=== PATIENT | female | born 1940 ===

== ENCOUNTER 2016-10-08 17:24 | Inpatient (IN) | payer MEDICARE, MEDICAID ==
--- NOTE | 2016-10-08 17:54 | ED PDOC ---
HPI: Altered Mental Status Time Seen by Provider: 10/08/16 17:40 Chief Complaint (Nursing): Altered Mental Status History Per: Patient (patient is brought to the ER via EMS because of lethargy. She was noted to have low sugar by EMS. She was given glucose PO on scene and transported for further treatment. Patient reports have had multiple episodes of diarrhea yesterday.), EMS Onset/Duration Of Symptoms: Waxing/Waning, Gradual Usual Baseline: Alert Oriented Past Medical History Vital Signs: Last Vital Signs Temp 96.0 F L 10/08/16 17:33 Pulse 73 10/08/16 17:33 Resp 20 10/08/16 17:33 BP 107/49 L 10/08/16 17:33 Pulse Ox 99 10/08/16 17:33 - Medical History PMH: Anxiety, Arthritis, CAD, HTN, Hypothyroidism Denies: Asthma, Bronchitis, COPD, Hypercholesterolemia, Mitral Valve Prolapse , Peripheral Edema - Surgical History Surgical History: CABG Denies: Pacemaker - Family History Family History: States: CAD - Living Arrangements Living Arrangements: With Family - Home Medications Home Medications: Ambulatory Orders Medication Instructions Recorded Aspirin [Ecotrin] 81 mg PO DAILY 10/08/16 Atorvastatin [Lipitor] 80 mg PO DAILY 10/08/16 Clopidogrel [Plavix] 75 mg PO DAILY 10/08/16 Dexlansoprazole [Dexilant] 60 mg PO DAILY 10/08/16 Gabapentin [Neurontin] 300 mg PO TID 10/08/16 Insulin Detemir [Levemir] 20 unit SQ HS 10/08/16 Isosorbide Mononitrate [Imdur] 60 mg PO DAILY 10/08/16 Levothyroxine [Synthroid] 50 mcg PO DAILY 10/08/16 Multivitamin [Daily Vitamin 1 tab PO DAILY 10/08/16 Formula] Valsartan [Diovan] 320 mg PO DAILY 10/08/16 amLODIPine [Norvasc] 5 mg PO DAILY 10/08/16 metFORMIN [glucOPHAGE] 500 mg PO BID 10/08/16 - Allergies Allergies/Adverse Reactions: Allergies Allergy/AdvReac Type Severity Reaction Status Date / Time No Known Allergies Allergy Verified 03/25/14 20:41 Review of Systems ROS Statement: Except As Marked, All Systems Reviewed And Found Negative Gastrointestinal: Positive for: Diarrhea. Negative for: Abdominal Pain Genitourinary Female: Negative for: Dysuria, Frequency Physical Exam - Reviewed Nursing Documentation Reviewed: Yes Vital Signs Reviewed: Yes - Physical Exam Appears: Positive for: Well, Non-toxic, No Acute Distress Head Exam: Positive for: ATRAUMATIC, NORMAL INSPECTION, NORMOCEPHALIC Skin: Positive for: Normal Color, Warm, DRY Eye Exam: Positive for: EOMI, Normal appearance, PERRL ENT: Positive for: Normal ENT Inspection Neck: Positive for: Normal, Painless ROM Cardiovascular/Chest: Positive for: Regular Rate, Rhythm Respiratory: Positive for: CNT, Normal Breath Sounds Gastrointestinal/Abdominal: Positive for: Normal Exam, Bowel Sounds, Soft Back: Positive for: Normal Inspection Extremity: Positive for: Normal ROM Neurologic/Psych: Positive for: Alert, Oriented - Laboratory Results Result Diagrams: 10/09/16 07:05 10/09/16 07:05 - ECG O2 Sat by Pulse Oximetry: 99 Disposition - Clinical Impression Clinical Impression: UTI (urinary tract infection), Dehydration, Hypoglycemia - Patient ED Disposition Is Patient to be Admitted: Yes Doctor Will See Patient In The: Hospital - Disposition Disposition: Left W/O Being Seen Disposition Time: 09:31 Condition: STABLE - Pt Status Changed To: Hospital Disposition Of: Inpatient - Admit Certification Admit to Inpatient:: After my assessment, the patient will require hospitalization for at least two midnights. This is because of the severity of symptoms shown, intensity of services needed, and/or the medical risk in this patient being treated as an outpatient. - POA Present On Arrival: None
[2016-10-08] MEDS ORDERED: Dextrose 5%/0.45% NS 1,000 ML IV SCH (18:00)
[2016-10-08 18:26] LABS: BASO % 0.4 % (0.0-2.0); EOS # 0.1 K/uL (0.0-0.7); EOS % 0.8 % (0.0-4.0); HEMATOCRIT 28.9 % (34.0-47.0); LYMPH # 1.6 K/uL (1.0-4.3); LYMPH % 18.1 % (20.0-40.0); MEAN CELL VOLUME 82.3 fl (81.0-99.0); MEAN CORPUSCULAR HEMOGLOBIN 26.8 pg (27.0-31.0); MEAN CORPUSCULAR HGB CONC 32.6 g/dL (33.0-37.0); MEAN PLATELET VOLUME 7.9 fl (7.2-11.7); MONO # 0.6 K/uL (0.0-0.8); MONO % 6.7 % (0.0-10.0); NEUT # 6.6 K/uL (1.8-7.0); RED CELL DISTRIBUTION WIDTH 15.2 % (11.5-14.5)
[2016-10-08 18:56] LABS: ALB/GLOB RATIO 1.1 (1.0-2.1); ALKALINE PHOSPHATASE 129 U/L (38-126); ALT/SGPT 32 U/L (9-52); AST/SGOT 54 U/L (14-36); BILIRUBIN,TOTAL 0.3 mg/dl (0.2-1.3); BLOOD UREA NITROGEN 6 mg/dl (7-17); CALCIUM 9.2 mg/dL (8.4-10.2); CARBON DIOXIDE 23 mmol/L (22-30); CHLORIDE 100 mmol/L (98-107); GFR AFRICAN-AMERICAN > 60; GLUCOSE,RANDOM 73 mg/dL (65-105); POTASSIUM 3.6 MMOL/L (3.6-5.0); SODIUM 131 mmol/l (132-148); TOTAL PROTEIN 7.7 G/DL (6.3-8.2)
--- NOTE | 2016-10-08 19:10 | ED PDOC ---
- Laboratory Results Result Diagrams: 10/08/16 18:15 10/08/16 18:15 - ECG O2 Sat by Pulse Oximetry: 99 Medical Decision Making Medical Decision Makin:00 Patient is signed out to me by Lanette Graves MD pending reevaluation and final disposition. 20:00 Pt. states she's feeling slightly better, still dizzy she states. UTI on UA. Will admit for dehydration, UTI, hypoglcemia. Scribe Attestation: Documented by Merle Chris, acting as a scribe for Blue Lange MD. Provider Scribe Attestation: All medical record entries made by the Scribe were at my direction and personally dictated by me. I have reviewed the chart and agree that the record accurately reflects my personal performance of the history, physical exam, medical decision making, and the department course for this patient. I have also personally directed, reviewed, and agree with the discharge instructions and disposition. Disposition - Clinical Impression Clinical Impression: Urinary tract infection, Dehydration, Hypoglycemia - POA Present On Arrival: None - Disposition Disposition: Hospitalized as Observation Patient Disposition Time: 20:54 Condition: STABLE
[2016-10-08 19:36] LABS: PARTIAL THROMBOPLASTIN TIME 25.7 SECONDS (23.3-32.5)
[2016-10-08] MEDS ORDERED: Sodium Chloride 0.9% 1,000 ML IV STA (20:18)
[2016-10-08 20:38] LABS: RBC URINE 25 /hpf (0-3); URINE BACTERIA MANY (<OCC); URINE BILIRUBIN NEGATIVE (NEGATIVE); URINE BLOOD MODERATE (NEGATIVE); URINE COLOR YELLOW (YELLOW); URINE GLUCOSE (UA) 150 mg/dL (Normal); URINE KETONE NEGATIVE (NEGATIVE); URINE LEUKOCYTE ESTERASE MOD Leu/uL (Negative); URINE PROTEIN NEGATIVE (NEGATIVE); URINE UROBILINOGEN 0.2-1.0 mg/dL (0.2-1.0); WBC URINE 18 /hpf (0-5)
[2016-10-08] MEDS ORDERED: Ciprofloxacin 200mg/100ml D5W 100 ML IVPB STA (20:50)
[2016-10-09] MEDS ORDERED: Sodium Chloride 0.9% 1,000 ML IV SCH (06:15)
[2016-10-09 07:50] LABS: ALB/GLOB RATIO 1.1 (1.0-2.1); ALKALINE PHOSPHATASE 135 U/L (38-126); ALT/SGPT 28 U/L (9-52); AST/SGOT 28 U/L (14-36); BILIRUBIN,TOTAL 0.2 mg/dl (0.2-1.3); BLOOD UREA NITROGEN 3 mg/dl (7-17); CALCIUM 8.7 mg/dL (8.4-10.2); CARBON DIOXIDE 21 mmol/L (22-30); CHLORIDE 104 mmol/L (98-107); CHOLESTEROL 127 mg/dL (0-199); GFR AFRICAN-AMERICAN > 60; GLUCOSE,RANDOM 253 mg/dL (65-105); POTASSIUM 3.9 MMOL/L (3.6-5.0); SODIUM 135 mmol/l (132-148); TOTAL PROTEIN 6.9 G/DL (6.3-8.2)
[2016-10-09 08:02] LABS: HEMATOCRIT 28.4 % (34.0-47.0); MEAN CELL VOLUME 82.2 fl (81.0-99.0); MEAN CORPUSCULAR HEMOGLOBIN 27.2 pg (27.0-31.0); MEAN CORPUSCULAR HGB CONC 33.1 g/dL (33.0-37.0); WHITE BLOOD COUNT 5.8 K/uL (4.8-10.8)
[2016-10-09 08:20] LABS: THYROID STIMULATING HORMONE 1.36 mIU/ML (0.46-4.68)
--- NOTE | 2016-10-09 08:23 | CARD ---
APPROVED REPORT EKG Measurement Heart [id number] <Conclusion> Sinus rhythm with occasional premature ventricular complexes Abnormal ECG
[2016-10-09] MEDS ORDERED: Patient's Own Med (Atorvastatin [Lipitor] 80 MG) PO SCH (09:00)
[2016-10-09] MEDS ORDERED: MULTIVITAMIN PO SCH (09:00)
[2016-10-09] MEDS ORDERED: Patient's Own Med (Valsartan [Diovan] 320 MG) PO SCH (09:00)
[2016-10-09] MEDS: Ciprofloxacin 200mg/100ml D5W 100 ML IVPB SCH ×2 (09:10→21:45)
[2016-10-09] MEDS: Levothyroxine 50 MCG TAB PO SCH (09:13)
[2016-10-09] MEDS: Multivitamin With Minerals Tab PO SCH (09:13)
[2016-10-09] MEDS: Pantoprazole 40 mg EC Tab PO SCH (09:13)
[2016-10-09] MEDS ORDERED: Dextrose 50% SYRINGE Inj (50 ml) IV PRN (11:59)
[2016-10-09] MEDS ORDERED: Glucagon Recombinant 1 mg Inj IM PRN (11:59)
[2016-10-09] MEDS: Enoxaparin 40 mg Syringe SC SCH (12:46)
[2016-10-09] MEDS: Insulin Regular 100 units/ml SC SCH ×3 (12:48→22:55)
--- NOTE | 2016-10-09 13:28 | RAD ---
HISTORY: r/o PNA COMPARISON: 03/25/2014 FINDINGS: LUNGS: The lungs are well inflated and clear. PLEURA: No significant pleural effusion identified, no pneumothorax apparent. CARDIOVASCULAR: The heart is normal in size. Status post CABG. OSSEOUS STRUCTURES: Within normal limits for the patient's age. VISUALIZED UPPER ABDOMEN: Normal. OTHER FINDINGS: None. IMPRESSION: No active pulmonary disease.
[2016-10-10 01:02] LABS: FOLATE > 20.0 ng/mL
[2016-10-10] MEDS: Levothyroxine 50 MCG TAB PO SCH (05:43)
[2016-10-10] MEDS: Insulin Regular 100 units/ml SC SCH ×4 (06:36→22:28)
--- NOTE | 2016-10-10 07:53 | CARD ---
APPROVED REPORT EXAM: Two-dimensional and M-mode echocardiogram with Doppler and color Doppler. Other Information Quality : AverageRhythm : NSR INDICATION Fatigue Hypertension/HCVD 2D DIMENSIONS IVSd0.64 (0.7-1.1cm)LVDd3.56 (3.9-5.9cm) LVOT Diameter1.45 (1.8-2.4cm)PWd0.83 (0.7-1.1cm) IVSs0.66 (0.8-1.2cm)LVDs3.16 (2.5-4.0cm) FS (%) 11.1 %PWs0.93 (0.8-1.2cm) M-Mode DIMENSIONS Left Atrium (MM)4.11 (2.5-4.0cm)Aortic Root2.54 (2.2-3.7cm) Aortic Cusp Exc.1.21 (1.5-2.0cm) Mitral Valve E/A ratio0.0 TDI E/Lateral E'0.0E/Medial E'0.0 LEFT VENTRICLE The left ventricle is normal size. There is normal left ventricular wall thickness. Left ventricle systolic function is low normal. The Ejection Fraction is 45-50%. Apical half of the septum was hypokinetic Other LV wall segments moved normally. Transmitral Doppler flow pattern is Grade I-abnormal relaxation pattern. RIGHT VENTRICLE The right ventricle is normal size. There is normal right ventricular wall thickness. The right ventricular systolic function is normal. ATRIA The left atrium size is normal. The right atrium size is normal. AORTIC VALVE The aortic valve is mildly sclerotic. No aortic regurgitation is present. There is no aortic valvular stenosis. MITRAL VALVE Mitral annular calcification is mild to moderate. There is no evidence of mitral valve prolapse. There is no mitral valve stenosis. There is no mitral valve regurgitation noted. TRICUSPID VALVE The tricuspid valve is normal in structure and function. There is no tricuspid valve regurgitation noted. PULMONIC VALVE The pulmonary valve is normal in structure and function. There is no pulmonic valvular regurgitation. GREAT VESSELS The aortic root is normal in size. The IVC is normal in size and collapses >50% with inspiration. PERICARDIAL EFFUSION The pericardium appears normal. <Conclusion> The images were suboptimal because of a poor echo window. The left ventricle is normal size. There is normal left ventricular wall thickness. Apical half of the septum was hypokinetic Other LV wall segments moved normally. Left ventricle systolic function is low normal. The Ejection Fraction is 45-50%. Transmitral Doppler flow pattern is Grade I-abnormal relaxation pattern.
[2016-10-10] MEDS: Ciprofloxacin 200mg/100ml D5W 100 ML IVPB SCH ×2 (09:13→22:00)
[2016-10-10] MEDS: Enoxaparin 40 mg Syringe SC SCH (09:15)
[2016-10-10] MEDS: Multivitamin With Minerals Tab PO SCH (09:16)
[2016-10-10] MEDS: Pantoprazole 40 mg EC Tab PO SCH (09:16)
--- NOTE | 2016-10-10 10:19 | CP.PCM.HP ---
History of Present Illness - History of Present Illness History of Present Illness: This is a 76 y/o female admitted through the ER last night for general debility , hypoglycemia and UTI She was on glipizide and Insulin and low dose Metformin at home. She claims that she had not been feeling well for the past few days. She has a hx of HTN CAD Hypothyroidism., DM 2. Present on Admission - Present on Admission Any Indicators Present on Admission: No History of DVT/PE: No History of Uncontrolled Diabetes: Yes Urinary Catheter: No Decubitus Ulcer Present: No Review of Systems - Constitutional Constitutional: Daytime Sleepiness, Fatigue, Lethargy, Malaise, Weakness - Musculoskeletal Musculoskeletal: Arthralgias Past Patient History - Tetanus Immunizations Tetanus Immunization: Unknown - Past Medical History & Family History Past Medical History?: Yes - Past Social History Smoking Status: Never Smoked - CARDIAC Hx Hypercholesterolemia: No Hx Hypertension: Yes Hx Mitral Valve Prolapse: No Hx Pacemaker: No Hx Peripheral Edema: No - PULMONARY Hx Asthma: No Hx Bronchitis: No Hx Chronic Obstructive Pulmonary Disease (COPD): No - NEUROLOGICAL Hx Neurological Disorder: No - HEENT Hx HEENT Problems: Yes Hx Blind: Yes (both eyes) - RENAL Hx Chronic Kidney Disease: No Hx Dialysis: No - ENDOCRINE/METABOLIC Hx Hypothyroidism: Yes - HEMATOLOGICAL/ONCOLOGICAL Hx Blood Disorders: No Hx AIDS: No Hx Human Immunodeficiency Virus (HIV): No - INTEGUMENTARY Hx Dermatological Problems: No - MUSCULOSKELETAL/RHEUMATOLOGICAL Hx Arthritis: Yes - GASTROINTESTINAL Hx Gastrointestinal Disorders: Yes Hx Gastroesophageal Reflux: Yes - GENITOURINARY/GYNECOLOGICAL Hx Genitourinary Disorders: No - PSYCHIATRIC Hx Anxiety: Yes - SURGICAL HISTORY Hx Coronary Artery Bypass Graft: Yes - ANESTHESIA Hx Anesthesia: Yes Hx Anesthesia Reactions: No Hx Malignant Hyperthermia: No Meds Allergies/Adverse Reactions: Allergies Allergy/AdvReac Type Severity Reaction Status Date / Time No Known Allergies Allergy Verified 03/25/14 20:41 Physical Exam - Head Exam Head Exam: NORMAL INSPECTION - Eye Exam Eye Exam: Normal appearance - ENT Exam ENT Exam: Mucous Membranes Moist - Respiratory Exam Respiratory Exam: Clear to Auscultation Bilateral - Cardiovascular Exam Cardiovascular Exam: REGULAR RHYTHM - GI/Abdominal Exam GI & Abdominal Exam: Normal Bowel Sounds - Neurological Exam Neurological exam: CN II-XII Intact, Oriented x3 - Psychiatric Exam Psychiatric exam: Anxious, Depressed Results - Vital Signs Recent Vital Signs: Last Vital Signs Temp 98.6 F 03/24/17 09:00 Pulse 87 10/10/16 09:15 Resp 20 10/10/16 09:00 BP 111/69 10/10/16 09:15 Pulse Ox 99 10/10/16 09:31 - Labs Result Diagrams: 10/09/16 07:05 10/09/16 07:05 Labs: Laboratory Results - last 24 hr 10/09/16 10/09/16 10/09/16 07:05 10:52 16:37 POC Glucose (mg/dL) 420 H* 298 H Hemoglobin A1c 9.0 H Folate > 20.0 10/09/16 10/10/16 10/10/16 22:25 00:01 05:39 POC Glucose (mg/dL) 62 L 127 H 310 H Hemoglobin A1c Folate Assessment & Plan (1) Hypoglycemia Status: Acute (2) UTI (urinary tract infection) Status: Acute (3) Diabetes mellitus type 2 in nonobese Status: Acute (4) CAD (coronary artery disease) Status: Acute (5) HTN (hypertension) Status: Acute - Assessment and Plan (Free Text) Plan: hydrate start Iv antibiotics Urine C and S accucheck increase metformin add januvia and pioglitazone check ECHO A1c
--- NOTE | 2016-10-10 10:25 | CP.PCM.PN ---
Subjective - Date & Time of Evaluation Date of Evaluation: 10/10/16 Time of Evaluation: 10:23 - Subjective Subjective: Noted to have an episode of FBS more than 400. Currently on po meds Feels tired No urine C and S yet Afebrile Objective - Vital Signs/Intake and Output Vital Signs (last 24 hours): Temp Pulse Resp BP Pulse Ox 98.6 F 87 20 111/69 99 10/10/16 09:00 10/10/16 09:15 10/10/16 09:00 10/10/16 09:15 10/10/16 09:31 - Medications Medications: Current Medications Amlodipine Besylate (Norvasc) 5 mg PO DAILY [facility] Last Admin: 10/10/16 09:15 Dose: 5 mg Aspirin (Ecotrin) 81 mg PO DAILY [facility] Last Admin: 10/10/16 09:14 Dose: 81 mg Atorvastatin Calcium (Lipitor) 80 mg PO DAILY [facility] Last Admin: 10/10/16 09:15 Dose: 80 mg Clopidogrel Bisulfate (Plavix) 75 mg PO DAILY [facility] Last Admin: 10/10/16 09:16 Dose: 75 mg Dextrose (Glutose 15) 0 gm PO ONCE PRN; Protocol PRN Reason: Hypoglycemia Protocol Dextrose (Dextrose 50% Inj) 0 ml IV STAT PRN; Protocol PRN Reason: Hyglycemia Protocol Enoxaparin Sodium (Lovenox) 40 mg SC DAILY DONN PRN Reason: Protocol Last Admin: 10/10/16 09:15 Dose: 40 mg Gabapentin (Neurontin) 300 mg PO TID [facility] Last Admin: 10/10/16 09:15 Dose: 300 mg Glucagon (Glucagen Diagnostic Kit) 0 mg IM STAT PRN; Protocol PRN Reason: Hypoglycemia Protocol Ciprofloxacin (Cipro 200mg/100ml D5w) 100 mls @ 100 mls/hr IVPB Q12 [facility] Last Admin: 10/10/16 09:13 Dose: 100 mls/hr Insulin Human Regular (Humulin R) 0 units SC ACHS DONN PRN Reason: Protocol Last Admin: 10/10/16 06:36 Dose: 6 units Isosorbide Mononitrate (Imdur) 60 mg PO DAILY [facility] Last Admin: 10/10/16 09:14 Dose: 60 mg Levothyroxine Sodium (Synthroid) 50 mcg PO DAILY@0630 [facility] Last Admin: 10/10/16 05:43 Dose: 50 mcg Metformin HCl (Glucophage) 850 mg PO BID [facility] Last Admin: 10/10/16 09:14 Dose: 850 mg Multivitamins/Minerals (Therapeutic-M Tab) 1 tab PO DAILY [facility] Last Admin: 10/10/16 09:16 Dose: 1 tab Pantoprazole Sodium (Protonix Ec Tab) 40 mg PO DAILY [facility] Last Admin: 10/10/16 09:16 Dose: 40 mg Pioglitazone HCl (Actos) 30 mg PO DAILY [facility] Last Admin: 10/10/16 09:13 Dose: 30 mg Sitagliptin Phosphate (Januvia) 100 mg PO DAILY [facility] Last Admin: 10/10/16 09:15 Dose: 100 mg Valsartan (Diovan) 320 mg PO DAILY [facility] Last Admin: 10/10/16 09:13 Dose: 320 mg - Labs Labs: 10/09/16 07:05 10/09/16 07:05 PT 10.8 SECONDS (9.6-11.2) 10/08/16 18:15 INR 1.04 (0.92-1.08) 10/08/16 18:15 APTT 25.7 SECONDS (23.3-32.5) 10/08/16 18:15 - Head Exam Head Exam: NORMAL INSPECTION - Eye Exam Eye Exam: Normal appearance - ENT Exam ENT Exam: Mucous Membranes Moist - Respiratory Exam Respiratory Exam: Clear to Ausculation Bilateral - Cardiovascular Exam Cardiovascular Exam: REGULAR RHYTHM - Neurological Exam Neurological Exam: Awake, CN II-XII Intact, Oriented x3 Assessment and Plan (1) Hypoglycemia Status: Acute (2) UTI (urinary tract infection) Status: Acute (3) Diabetes mellitus type 2 in nonobese Status: Acute (4) CAD (coronary artery disease) Status: Acute (5) HTN (hypertension) Status: Acute - Assessment and Plan (Free Text) Plan: cont meds Hydrate Increase metformin to 1000 bid add levemir small dose at night cont meds ECHO shows EF 45 to 50 %
[2016-10-10 21:17] LABS: RBC URINE < 1 /hpf (0-3); URINE BILIRUBIN NEGATIVE (NEGATIVE); URINE BLOOD NEGATIVE (NEGATIVE); URINE COLOR STRAW (YELLOW); URINE GLUCOSE (UA) >=500 mg/dL (Normal); URINE KETONE NEGATIVE (NEGATIVE); URINE LEUKOCYTE ESTERASE NEG Leu/uL (Negative); URINE PROTEIN NEGATIVE (NEGATIVE); URINE UROBILINOGEN 0.2-1.0 mg/dL (0.2-1.0); WBC URINE < 1 /hpf (0-5)
[2016-10-11] MEDS: Insulin Regular 100 units/ml SC SCH ×4 (07:41→23:43)
[2016-10-11] MEDS: Levothyroxine 50 MCG TAB PO SCH (07:41)
[2016-10-11] MEDS: Multivitamin With Minerals Tab PO SCH (09:14)
[2016-10-11] MEDS: Enoxaparin 40 mg Syringe SC SCH (09:14)
[2016-10-11] MEDS: Pantoprazole 40 mg EC Tab PO SCH (09:15)
[2016-10-11] MEDS: Ciprofloxacin 200mg/100ml D5W 100 ML IVPB SCH ×2 (09:16→21:31)
[2016-10-11] MEDS ORDERED: Insulin Detemir 100 Units/ml Inj SC SCH ×2 (11:00→22:00)
--- NOTE | 2016-10-11 11:41 | CP.PCM.PN ---
Subjective - Date & Time of Evaluation Date of Evaluation: 10/11/16 Time of Evaluation: 11:33 - Subjective Subjective: Patient remains stable still with elevated FBS Noted low Hgb b12 and Folate are both normal Patient claims that she lives alone and gets 5 hr daily of homemaker . Objective - Vital Signs/Intake and Output Vital Signs (last 24 hours): Temp Pulse Resp BP Pulse Ox 99 F 104 H 18 101/70 100 10/11/16 08:41 10/11/16 09:15 10/11/16 08:41 10/11/16 09:15 10/11/16 08:41 - Medications Medications: Current Medications Amlodipine Besylate (Norvasc) 5 mg PO DAILY [facility] Last Admin: 10/11/16 09:15 Dose: 5 mg Aspirin (Ecotrin) 81 mg PO DAILY [facility] Last Admin: 10/11/16 09:15 Dose: 81 mg Atorvastatin Calcium (Lipitor) 80 mg PO DAILY [facility] Last Admin: 10/11/16 09:15 Dose: 80 mg Clopidogrel Bisulfate (Plavix) 75 mg PO DAILY [facility] Last Admin: 10/11/16 09:15 Dose: 75 mg Dextrose (Glutose 15) 0 gm PO ONCE PRN; Protocol PRN Reason: Hypoglycemia Protocol Dextrose (Dextrose 50% Inj) 0 ml IV STAT PRN; Protocol PRN Reason: Hyglycemia Protocol Enoxaparin Sodium (Lovenox) 40 mg SC DAILY DONN PRN Reason: Protocol Last Admin: 10/11/16 09:14 Dose: 40 mg Gabapentin (Neurontin) 300 mg PO TID [facility] Last Admin: 10/11/16 09:15 Dose: 300 mg Glucagon (Glucagen Diagnostic Kit) 0 mg IM STAT PRN; Protocol PRN Reason: Hypoglycemia Protocol Ciprofloxacin (Cipro 200mg/100ml D5w) 100 mls @ 100 mls/hr IVPB Q12 [facility] Last Admin: 10/11/16 09:16 Dose: 100 mls/hr Insulin Human Regular (Humulin R) 0 units SC ACHS DONN PRN Reason: Protocol Last Admin: 10/11/16 07:41 Dose: 4 units Isosorbide Mononitrate (Imdur) 60 mg PO DAILY [facility] Last Admin: 10/11/16 09:14 Dose: 60 mg Levothyroxine Sodium (Synthroid) 50 mcg PO DAILY@0630 [facility] Last Admin: 10/11/16 07:41 Dose: 50 mcg Metformin HCl (Glucophage) 1,000 mg PO BIDWM [facility] Last Admin: 10/11/16 09:16 Dose: 1,000 mg Multivitamins/Minerals (Therapeutic-M Tab) 1 tab PO DAILY [facility] Last Admin: 10/11/16 09:14 Dose: 1 tab Pantoprazole Sodium (Protonix Ec Tab) 40 mg PO DAILY [facility] Last Admin: 10/11/16 09:15 Dose: 40 mg Pioglitazone HCl (Actos) 30 mg PO DAILY [facility] Last Admin: 10/11/16 09:14 Dose: 30 mg Sitagliptin Phosphate (Januvia) 100 mg PO DAILY [facility] Last Admin: 10/11/16 09:15 Dose: 100 mg Valsartan (Diovan) 320 mg PO DAILY [facility] Last Admin: 10/11/16 09:16 Dose: 320 mg - Labs Labs: 10/09/16 07:05 10/09/16 07:05 PT 10.8 SECONDS (9.6-11.2) 10/08/16 18:15 INR 1.04 (0.92-1.08) 10/08/16 18:15 APTT 25.7 SECONDS (23.3-32.5) 10/08/16 18:15 - Head Exam Head Exam: NORMAL INSPECTION - Eye Exam Eye Exam: Normal appearance - ENT Exam ENT Exam: Mucous Membranes Moist - Respiratory Exam Respiratory Exam: Clear to Ausculation Bilateral - Cardiovascular Exam Cardiovascular Exam: REGULAR RHYTHM - GI/Abdominal Exam GI & Abdominal Exam: Normal Bowel Sounds - Neurological Exam Neurological Exam: Awake, CN II-XII Intact, Oriented x3 Assessment and Plan (1) Hypoglycemia Status: Acute (2) UTI (urinary tract infection) Status: Acute (3) Diabetes mellitus type 2 in nonobese Status: Acute (4) CAD (coronary artery disease) Status: Acute (5) HTN (hypertension) Status: Acute - Assessment and Plan (Free Text) Plan: cont meds cont PT levemir 10 nits at 10 am
[2016-10-11] MEDS: Insulin Detemir 100 Units/ml Inj SC SCH (12:00)
[2016-10-12] MEDS: Levothyroxine 50 MCG TAB PO SCH (06:47)
[2016-10-12] MEDS: Insulin Regular 100 units/ml SC SCH ×3 (06:47→17:46)
[2016-10-12 08:31] VITALS: O2SAT 97
[2016-10-12 08:34] VITALS: BP 114/73; PULSE 87; RESP 20; TEMP 97.8
[2016-10-12] MEDS: Enoxaparin 40 mg Syringe SC SCH (09:27)
[2016-10-12] MEDS: Multivitamin With Minerals Tab PO SCH (09:28)
[2016-10-12] MEDS: Pantoprazole 40 mg EC Tab PO SCH (09:29)
[2016-10-12] MEDS: Ciprofloxacin 200mg/100ml D5W 100 ML IVPB SCH (09:35)
[2016-10-12] MEDS: Insulin Detemir 100 Units/ml Inj SC SCH (11:00)
--- NOTE | 2016-10-12 18:01 | CP.PCM.PN ---
Subjective - Date & Time of Evaluation Date of Evaluation: 10/12/16 Time of Evaluation: 17:54 - Subjective Subjective: Patient remains stable still with elevated FBS despite meds. Currently on max doses of metformin januvia and pioglitazoone started on levemir yesterday. Objective - Vital Signs/Intake and Output Vital Signs (last 24 hours): Temp Pulse Resp BP Pulse Ox 97.8 F 87 20 114/73 97 10/12/16 08:30 10/12/16 09:27 10/12/16 08:30 10/12/16 09:27 10/12/16 08:30 - Medications Medications: Current Medications Amlodipine Besylate (Norvasc) 5 mg PO DAILY [facility] Last Admin: 10/12/16 09:27 Dose: 5 mg Aspirin (Ecotrin) 81 mg PO DAILY [facility] Last Admin: 10/12/16 09:29 Dose: 81 mg Atorvastatin Calcium (Lipitor) 80 mg PO DAILY [facility] Last Admin: 10/12/16 09:29 Dose: 80 mg Clopidogrel Bisulfate (Plavix) 75 mg PO DAILY [facility] Last Admin: 10/12/16 09:29 Dose: 75 mg Dextrose (Glutose 15) 0 gm PO ONCE PRN; Protocol PRN Reason: Hypoglycemia Protocol Dextrose (Dextrose 50% Inj) 0 ml IV STAT PRN; Protocol PRN Reason: Hyglycemia Protocol Gabapentin (Neurontin) 300 mg PO TID [facility] Last Admin: 10/12/16 17:47 Dose: 300 mg Glucagon (Glucagen Diagnostic Kit) 0 mg IM STAT PRN; Protocol PRN Reason: Hypoglycemia Protocol Ciprofloxacin (Cipro 200mg/100ml D5w) 100 mls @ 100 mls/hr IVPB Q12 [facility] Last Admin: 10/12/16 09:35 Dose: 100 mls/hr Insulin Detemir (Levemir) 10 units SC DAILY@1100 [facility] Last Admin: 10/12/16 11:00 Dose: 10 unit Insulin Human Regular (Humulin R) 0 units SC ACHS DONN PRN Reason: Protocol Last Admin: 10/12/16 17:46 Dose: 4 units Isosorbide Mononitrate (Imdur) 60 mg PO DAILY [facility] Last Admin: 10/12/16 09:29 Dose: 60 mg Levothyroxine Sodium (Synthroid) 50 mcg PO DAILY@0630 [facility] Last Admin: 10/12/16 06:47 Dose: 50 mcg Metformin HCl (Glucophage) 1,000 mg PO BIDWM [facility] Last Admin: 10/12/16 17:47 Dose: 1,000 mg Multivitamins/Minerals (Therapeutic-M Tab) 1 tab PO DAILY [facility] Last Admin: 10/12/16 09:28 Dose: 1 tab Pantoprazole Sodium (Protonix Ec Tab) 40 mg PO DAILY [facility] Last Admin: 10/12/16 09:29 Dose: 40 mg Pioglitazone HCl (Actos) 30 mg PO DAILY [facility] Last Admin: 10/12/16 09:27 Dose: 30 mg Sitagliptin Phosphate (Januvia) 100 mg PO DAILY [facility] Last Admin: 10/12/16 09:28 Dose: 100 mg Valsartan (Diovan) 320 mg PO DAILY [facility] Last Admin: 10/12/16 09:28 Dose: 320 mg - Labs Labs: 10/09/16 07:05 10/09/16 07:05 PT 10.8 SECONDS (9.6-11.2) 10/08/16 18:15 INR 1.04 (0.92-1.08) 10/08/16 18:15 APTT 25.7 SECONDS (23.3-32.5) 10/08/16 18:15 - Head Exam Head Exam: NORMAL INSPECTION - Eye Exam Additional comments: patient is blind on both eyes. - ENT Exam ENT Exam: Mucous Membranes Moist - Respiratory Exam Respiratory Exam: Clear to Ausculation Bilateral - Cardiovascular Exam Cardiovascular Exam: REGULAR RHYTHM - GI/Abdominal Exam GI & Abdominal Exam: Normal Bowel Sounds - Neurological Exam Neurological Exam: CN II-XII Intact - Psychiatric Exam Psychiatric exam: Depressed, Flat Affect Assessment and Plan (1) Hypoglycemia Status: Acute (2) UTI (urinary tract infection) Status: Acute (3) Diabetes mellitus type 2 in nonobese Status: Acute (4) CAD (coronary artery disease) Status: Acute (5) HTN (hypertension) Status: Acute (6) Blind in both eyes Status: Acute - Assessment and Plan (Free Text) Plan: will arrange for terminal gauger supervisor subacute probably will need terminal gauger supervisor care increase levemir.
[2016-10-12] MEDS ORDERED: Insulin Detemir 100 Units/ml Inj SC SCH (22:00)
== END 2016-10-12 18:53 | DRG 638 ==
LOC: H.ER 17:24 → H.ERHOLD 20:52 → H.MEDSURG1 22:41 → OBSVTOIN 10-09 06:24 → H.MEDSURG1 10-12 16:49
PROVIDERS: ADMIT Family Medicine; ATTEND Family Medicine
DX: E11.649 Type 2 diabetes mellitus with hypoglycemia without coma (principal); N39.0 Urinary tract infection, site not specified; E86.0 Dehydration; I10 Essential (primary) hypertension; I25.10 Atherosclerotic heart disease of native coronary artery without angina pectoris; E03.9 Hypothyroidism, unspecified; H54.0 Blindness, both eyes; F41.9 Anxiety disorder, unspecified; M19.90 Unspecified osteoarthritis, unspecified site; Z95.1 Presence of aortocoronary bypass graft; Z79.4 Long term (current) use of insulin; Z79.82 Long term (current) use of aspirin; Z79.02 Long term (current) use of antithrombotics/antiplatelets

== ENCOUNTER 2016-10-12 18:03 | Inpatient (IN) | payer OTHER, MEDICAID ==
[2016-10-12 18:24] VITALS: BMI 25.7
[2016-10-12] MEDS ORDERED: Dextrose 50% SYRINGE Inj (50 ml) IVP PRN (21:23)
[2016-10-12] MEDS ORDERED: Glucagon Recombinant 1 mg Inj IM STA (21:25)
[2016-10-12] MEDS ORDERED: Glucagon Recombinant 1 mg Inj IM PRN (21:49)
[2016-10-12] MEDS: Insulin Regular 100 units/ml SC SCH (22:18)
[2016-10-12] MEDS: Insulin Detemir 100 Units/ml Inj SC SCH (22:21)
[2016-10-13] MEDS: Ciprofloxacin 200mg/100ml D5W 100 ML IVPB SCH ×2 (05:35→16:30)
[2016-10-13] MEDS: Levothyroxine 50 MCG TAB PO SCH (06:23)
[2016-10-13] MEDS: Insulin Regular 100 units/ml SC SCH ×4 (06:45→21:54)
[2016-10-13] MEDS: Enoxaparin 40 mg Syringe SC SCH (08:25)
[2016-10-13] MEDS: Multivitamin With Minerals Tab PO SCH (08:25)
[2016-10-13] MEDS: Pantoprazole 40 mg EC Tab PO SCH (08:26)
--- NOTE | 2016-10-13 10:23 | CP.PCM.HP ---
History of Present Illness - History of Present Illness History of Present Illness: This is a 76 y/o female admitted for further rehab and phys therapy. She was at medical floor for hypoglycemia and gen body weakness. She was started on po hypoglycemics and Levemir and FBS has been better controlled. Patient has HTN ,CAD uncontrolled DM 2. She is blind and lives alone. She receives 5 hrs a day of homemaker services. She has family but claims that they have not been supportive of her. No family visit was noted during her 4 day stay in the medical floor. She denies any chest pain or SOB. Has no fever, Recent CXR was normal Recent ECHO showed mild dysfunction with EF 45 Present on Admission - Present on Admission Any Indicators Present on Admission: No History of DVT/PE: No History of Uncontrolled Diabetes: Yes Urinary Catheter: No Decubitus Ulcer Present: No Review of Systems - Constitutional Constitutional: Daytime Sleepiness, Fatigue, Lethargy, Malaise - EENT Eyes: Change in Vision - Musculoskeletal Musculoskeletal: Arthralgias Past Patient History - Tetanus Immunizations Tetanus Immunization: Unknown - Past Medical History & Family History Past Medical History?: Yes - Past Social History Smoking Status: Never Smoked - CARDIAC Hx Hypercholesterolemia: Yes Hx Hypertension: Yes - PULMONARY Hx Respiratory Disorders: No - NEUROLOGICAL Hx Neurological Disorder: No - HEENT Hx HEENT Problems: Yes Hx Blind: Yes (both eyes) - RENAL Hx Chronic Kidney Disease: No Hx Dialysis: No - ENDOCRINE/METABOLIC Hx Endocrine Disorders: Yes Hx Diabetes Mellitus Type 2: Yes Hx Hypothyroidism: Yes - HEMATOLOGICAL/ONCOLOGICAL Hx Blood Disorders: No Hx AIDS: No Hx Blood Transfusions: No Hx Human Immunodeficiency Virus (HIV): No - INTEGUMENTARY Hx Dermatological Problems: No - MUSCULOSKELETAL/RHEUMATOLOGICAL Hx Musculoskeletal Disorders: No Hx Falls: No - GASTROINTESTINAL Hx Gastrointestinal Disorders: Yes Hx Gastroesophageal Reflux: Yes - GENITOURINARY/GYNECOLOGICAL Hx Genitourinary Disorders: Yes Hx Urinary Tract Infection: Yes - PSYCHIATRIC Hx Psychophysiologic Disorder: Yes Hx Anxiety: Yes Hx Substance Use: No - SURGICAL HISTORY Hx Surgeries: Yes Hx Appendectomy: Yes Hx Cholecystectomy: Yes Hx Coronary Artery Bypass Graft: Yes Hx Eye Surgery: Yes - ANESTHESIA Hx Anesthesia: Yes Hx Anesthesia Reactions: No Hx Malignant Hyperthermia: No Meds Allergies/Adverse Reactions: Allergies Allergy/AdvReac Type Severity Reaction Status Date / Time No Known Allergies Allergy Verified 03/26/17 18:24 Physical Exam - Head Exam Head Exam: NORMAL INSPECTION - Eye Exam Eye Exam: Normal appearance Additional comments: blind on both eyes - ENT Exam ENT Exam: Mucous Membranes Moist - Respiratory Exam Respiratory Exam: Clear to Auscultation Bilateral - Cardiovascular Exam Cardiovascular Exam: REGULAR RHYTHM - GI/Abdominal Exam GI & Abdominal Exam: Normal Bowel Sounds - Psychiatric Exam Psychiatric exam: Depressed, Flat Affect Results - Vital Signs Recent Vital Signs: Last Vital Signs Temp 97.9 F 10/13/16 08:14 Pulse 80 10/13/16 08:26 Resp 20 10/13/16 08:14 BP 133/58 L 10/13/16 08:26 Pulse Ox 99 10/13/16 08:14 - Labs Labs: Laboratory Results - last 24 hr 10/12/16 10/13/16 22:12 05:11 POC Glucose (mg/dL) 162 H 154 H Assessment & Plan (1) Blind in both eyes Status: Acute (2) CAD (coronary artery disease) Status: Acute (3) Diabetes mellitus type 2 in nonobese Status: Acute (4) HTN (hypertension) Status: Acute (5) Hypothyroidism Status: Acute (6) Physical debility Status: Acute - Assessment and Plan (Free Text) Plan: star PT contine to adjust Levemir cont all po meds check labs
[2016-10-13] MEDS: Insulin Detemir 100 Units/ml Inj SC SCH (21:55)
[2016-10-14] MEDS: Ciprofloxacin 200mg/100ml D5W 100 ML IVPB SCH ×2 (04:13→16:46)
[2016-10-14] MEDS: Levothyroxine 50 MCG TAB PO SCH (06:04)
[2016-10-14] MEDS: Insulin Regular 100 units/ml SC SCH ×4 (06:45→21:32)
[2016-10-14] MEDS: Enoxaparin 40 mg Syringe SC SCH (08:34)
[2016-10-14] MEDS: Pantoprazole 40 mg EC Tab PO SCH (08:35)
[2016-10-14] MEDS: Multivitamin With Minerals Tab PO SCH (08:36)
--- NOTE | 2016-10-14 12:23 | CP.PCM.PN ---
<Jael Camargo - Last Filed: 10/14/16 13:06> Subjective - Date & Time of Evaluation Date of Evaluation: 10/14/16 Time of Evaluation: 10:15 - Subjective Subjective: pt seen and evaluated at bedside, doing well. discussed with pt about going to half-way from here as she does not have a good support system, she agree and would like to give that a try Objective - Vital Signs/Intake and Output Vital Signs (last 24 hours): Temp Pulse Resp BP Pulse Ox 97.8 F 60 20 129/60 99 10/14/16 08:18 10/14/16 08:35 10/14/16 08:18 10/14/16 08:35 10/14/16 08:18 - Medications Medications: Current Medications Amlodipine Besylate (Norvasc) 5 mg PO DAILY REPLACED BY [facility] Last Admin: 10/14/16 08:35 Dose: 5 mg Aspirin (Ecotrin) 81 mg PO DAILY REPLACED BY [facility] Last Admin: 10/14/16 08:33 Dose: 81 mg Atorvastatin Calcium (Lipitor) 80 mg PO DAILY REPLACED BY [facility] Last Admin: 10/14/16 08:34 Dose: Not Given Clopidogrel Bisulfate (Plavix) 75 mg PO DAILY REPLACED BY [facility] Last Admin: 10/14/16 08:35 Dose: 75 mg Dextrose (Dextrose 50% Inj) 50 ml IVP STAT PRN PRN Reason: Low blood sugar Enoxaparin Sodium (Lovenox) 40 mg SC DAILY REPLACED BY [facility] PRN Reason: Protocol Last Admin: 10/14/16 08:34 Dose: 40 mg Gabapentin (Neurontin) 300 mg PO TID REPLACED BY [facility] Last Admin: 10/14/16 08:35 Dose: 300 mg Glucagon (Glucagen Diagnostic Kit) 1 mg IM STAT PRN; Protocol PRN Reason: follow hypoglycemic protocol. Ciprofloxacin (Cipro 200mg/100ml D5w) 100 mls @ 100 mls/hr IVPB Q12@0500,1700 REPLACED BY [facility] Last Admin: 10/14/16 04:13 Dose: 100 mls/hr Insulin Detemir (Levemir) 15 units SC HS REPLACED BY [facility] Last Admin: 10/13/16 21:55 Dose: 15 units Insulin Human Regular (Humulin R) 0 units SC ACHS [facility] PRN Reason: Protocol Last Admin: 10/14/16 06:45 Dose: 2 units Isosorbide Mononitrate (Imdur) 60 mg PO DAILY REPLACED BY [facility] Last Admin: 10/14/16 08:34 Dose: 60 mg Levothyroxine Sodium (Synthroid) 50 mcg PO DAILY@0630 REPLACED BY [facility] Last Admin: 10/14/16 06:04 Dose: 50 mcg Metformin HCl (Glucophage) 1,000 mg PO BIDWM REPLACED BY [facility] Last Admin: 10/14/16 08:33 Dose: 1,000 mg Multivitamins/Minerals (Therapeutic-M Tab) 1 tab PO DAILY REPLACED BY [facility] Last Admin: 10/14/16 08:36 Dose: 1 tab Pantoprazole Sodium (Protonix Ec Tab) 40 mg PO DAILY REPLACED BY [facility] Last Admin: 10/14/16 08:35 Dose: 40 mg Pioglitazone HCl (Actos) 30 mg PO DAILY REPLACED BY [facility] Last Admin: 10/14/16 08:32 Dose: 30 mg Sitagliptin Phosphate (Januvia) 100 mg PO DAILY REPLACED BY [facility] Last Admin: 10/14/16 08:34 Dose: 100 mg Valsartan (Diovan) 320 mg PO DAILY REPLACED BY [facility] Last Admin: 10/14/16 08:32 Dose: 320 mg - Constitutional Appears: No Acute Distress - Head Exam Head Exam: NORMOCEPHALIC - Eye Exam Eye Exam: Normal appearance - ENT Exam ENT Exam: Mucous Membranes Moist - Respiratory Exam Respiratory Exam: Clear to Ausculation Bilateral, NORMAL BREATHING PATTERN - Cardiovascular Exam Cardiovascular Exam: REGULAR RHYTHM, +S1 - GI/Abdominal Exam GI & Abdominal Exam: Soft, Normal Bowel Sounds - Neurological Exam Neurological Exam: Alert, Awake Assessment and Plan - Assessment and Plan (Free Text) Assessment: 76 y/o female with significant medical history admitted to TCU to complete IV antibiotics and physical therapy Plan: 1. UTI continue with antibiotics 2. Continue with PT as tolerated 3. Home meds resumed 4. Discharge planning: will need placement in subacute/ half-way as pt is blind without support if she has to be discharged home then her levemir need to be given in the morning while the nurse aid is around <Davian Merrill - Last Filed: 10/21/16 09:22> Objective - Vital Signs/Intake and Output Vital Signs (last 24 hours): Temp Pulse Resp BP Pulse Ox 98.1 F 88 20 127/49 L 100 10/21/16 08:28 10/21/16 08:28 10/21/16 08:28 10/21/16 08:28 10/21/16 08:28 - Medications Medications: Current Medications Acetaminophen (Tylenol 325mg Tab) 650 mg PO Q4 PRN PRN Reason: Pain, moderate (4-7) Last Admin: 10/17/16 15:07 Dose: 650 mg Amlodipine Besylate (Norvasc) 5 mg PO DAILY REPLACED BY [facility] Last Admin: 10/21/16 08:09 Dose: 5 mg Aspirin (Ecotrin) 81 mg PO DAILY REPLACED BY [facility] Last Admin: 10/21/16 08:09 Dose: 81 mg Atorvastatin Calcium (Lipitor) 80 mg PO [facility] Last Admin: 10/20/16 21:43 Dose: 80 mg Clopidogrel Bisulfate (Plavix) 75 mg PO DAILY REPLACED BY [facility] Last Admin: 10/21/16 08:10 Dose: 75 mg Dextrose (Dextrose 50% Inj) 50 ml IVP STAT PRN PRN Reason: Low blood sugar Gabapentin (Neurontin) 300 mg PO TID REPLACED BY [facility] Last Admin: 10/21/16 08:09 Dose: 300 mg Glucagon (Glucagen Diagnostic Kit) 1 mg IM STAT PRN; Protocol PRN Reason: follow hypoglycemic protocol. Insulin Detemir (Levemir) 15 units SC [facility] Last Admin: 10/20/16 21:42 Dose: 15 units Insulin Human Regular (Humulin R) 0 units SC [facility] PRN Reason: Protocol Last Admin: 10/21/16 06:30 Dose: Not Given Isosorbide Mononitrate (Imdur) 60 mg PO DAILY REPLACED BY [facility] Last Admin: 10/21/16 08:09 Dose: 60 mg Levothyroxine Sodium (Synthroid) 50 mcg PO DAILY@0630 REPLACED BY [facility] Last Admin: 10/21/16 06:29 Dose: 50 mcg Metformin HCl (Glucophage) 1,000 mg PO BIDWM REPLACED BY [facility] Last Admin: 10/21/16 08:09 Dose: 1,000 mg Multivitamins/Minerals (Therapeutic-M Tab) 1 tab PO DAILY REPLACED BY [facility] Last Admin: 10/21/16 08:10 Dose: 1 tab Pantoprazole Sodium (Protonix Ec Tab) 40 mg PO DAILY REPLACED BY [facility] Last Admin: 10/21/16 08:10 Dose: 40 mg Pioglitazone HCl (Actos) 30 mg PO DAILY REPLACED BY [facility] Last Admin: 10/21/16 08:10 Dose: 30 mg Sitagliptin Phosphate (Januvia) 100 mg PO DAILY REPLACED BY [facility] Last Admin: 10/21/16 08:10 Dose: 100 mg Valsartan (Diovan) 320 mg PO DAILY [facility] Last Admin: 10/21/16 08:10 Dose: 320 mg Assessment and Plan (1) Blind in both eyes Status: Acute (2) CAD (coronary artery disease) Status: Acute (3) Diabetes mellitus type 2 in nonobese Status: Acute (4) HTN (hypertension) Status: Acute (5) Hypothyroidism Status: Acute (6) Physical debility Status: Acute - Assessment and Plan (Free Text) Plan: I was present during evaluation and discussed with Dr Mary Jo carreon plans and management. Davian Merrill M.D.
[2016-10-14] MEDS: Insulin Detemir 100 Units/ml Inj SC SCH (21:32)
[2016-10-15] MEDS: Ciprofloxacin 200mg/100ml D5W 100 ML IVPB SCH ×2 (05:30→16:25)
[2016-10-15] MEDS: Insulin Regular 100 units/ml SC SCH ×4 (06:42→21:26)
[2016-10-15] MEDS: Levothyroxine 50 MCG TAB PO SCH (06:42)
[2016-10-15] MEDS: Multivitamin With Minerals Tab PO SCH (08:32)
[2016-10-15] MEDS: Pantoprazole 40 mg EC Tab PO SCH (08:32)
[2016-10-15] MEDS: Enoxaparin 40 mg Syringe SC SCH (08:37)
--- NOTE | 2016-10-15 10:52 | CP.PCM.CON ---
History of Present Illness - History of Present Illness History of Present Illness: 76 year old female patient with PMHx of CAD, HTN, DM was seen at bedside this morning after request for podiatry consultation concerning elongated, dystrophic toenails x10. Patient was resting comfortably in chair with a physical therapist training her at the time of visit. Patient states that she is a diabetic patient and cannot trim her toenails because she cannot see. Patient denies of any pain to bilateral lower extremities. Patient denies of any N/V/F/C or SOB today Past Patient History - Tetanus Immunizations Tetanus Immunization: Unknown - Past Medical History & Family History Past Medical History?: Yes - Past Social History Smoking Status: Never Smoked - CARDIAC Hx Cardiac Disorders: Yes (HTN, high cholesterol, CAD) Hx Hypercholesterolemia: Yes Hx Hypertension: Yes - PULMONARY Hx Chronic Obstructive Pulmonary Disease (COPD): No - NEUROLOGICAL Hx Neurological Disorder: No - HEENT Hx HEENT Problems: Yes Hx Blind: Yes (both eyes) - RENAL Hx Chronic Kidney Disease: No Hx Dialysis: No - ENDOCRINE/METABOLIC Hx Diabetes Mellitus Type 2: Yes Hx Hypothyroidism: Yes - HEMATOLOGICAL/ONCOLOGICAL Hx Blood Disorders: No Hx AIDS: No Hx Blood Transfusions: No Hx Human Immunodeficiency Virus (HIV): No - INTEGUMENTARY Hx Dermatological Problems: No - MUSCULOSKELETAL/RHEUMATOLOGICAL Hx Arthritis: Yes - GASTROINTESTINAL Hx Gastrointestinal Disorders: Yes Hx Gastroesophageal Reflux: Yes - GENITOURINARY/GYNECOLOGICAL Hx Genitourinary Disorders: Yes Hx Urinary Tract Infection: Yes - PSYCHIATRIC Hx Psychophysiologic Disorder: Yes Hx Anxiety: Yes Hx Substance Use: No - SURGICAL HISTORY Hx Surgeries: Yes Hx Appendectomy: Yes Hx Cholecystectomy: Yes Hx Coronary Artery Bypass Graft: Yes Hx Eye Surgery: Yes - ANESTHESIA Hx Anesthesia: Yes Hx Anesthesia Reactions: No Hx Malignant Hyperthermia: No Meds Allergies/Adverse Reactions: Allergies Allergy/AdvReac Type Severity Reaction Status Date / Time No Known Allergies Allergy Verified 10/12/16 18:24 - Medications Medications: Current Medications Amlodipine Besylate (Norvasc) 5 mg PO DAILY [facility] Last Admin: 10/15/16 08:33 Dose: 5 mg Aspirin (Ecotrin) 81 mg PO DAILY [facility] Last Admin: 10/15/16 08:36 Dose: 81 mg Atorvastatin Calcium (Lipitor) 80 mg PO HS [facility] Last Admin: 10/14/16 21:31 Dose: 80 mg Clopidogrel Bisulfate (Plavix) 75 mg PO DAILY [facility] Last Admin: 10/15/16 08:33 Dose: 75 mg Dextrose (Dextrose 50% Inj) 50 ml IVP STAT PRN PRN Reason: Low blood sugar Enoxaparin Sodium (Lovenox) 40 mg SC DAILY [facility] PRN Reason: Protocol Last Admin: 10/15/16 08:37 Dose: 40 mg Gabapentin (Neurontin) 300 mg PO TID [facility] Last Admin: 10/15/16 08:31 Dose: 300 mg Glucagon (Glucagen Diagnostic Kit) 1 mg IM STAT PRN; Protocol PRN Reason: follow hypoglycemic protocol. Ciprofloxacin (Cipro 200mg/100ml D5w) 100 mls @ 100 mls/hr IVPB Q12@0500,1700 [facility] Last Admin: 10/15/16 05:30 Dose: 100 mls/hr Insulin Detemir (Levemir) 15 units SC HS [facility] Last Admin: 10/14/16 21:32 Dose: 15 units Insulin Human Regular (Humulin R) 0 units SC ACHS [facility] PRN Reason: Protocol Last Admin: 10/15/16 06:42 Dose: Not Given Isosorbide Mononitrate (Imdur) 60 mg PO DAILY [facility] Last Admin: 10/15/16 08:32 Dose: 60 mg Levothyroxine Sodium (Synthroid) 50 mcg PO DAILY@0630 [facility] Last Admin: 10/15/16 06:42 Dose: 50 mcg Metformin HCl (Glucophage) 1,000 mg PO BIDWM [facility] Last Admin: 10/15/16 08:36 Dose: 1,000 mg Multivitamins/Minerals (Therapeutic-M Tab) 1 tab PO DAILY [facility] Last Admin: 10/15/16 08:32 Dose: 1 tab Pantoprazole Sodium (Protonix Ec Tab) 40 mg PO DAILY [facility] Last Admin: 10/15/16 08:32 Dose: 40 mg Pioglitazone HCl (Actos) 30 mg PO DAILY [facility] Last Admin: 10/15/16 08:33 Dose: 30 mg Sitagliptin Phosphate (Januvia) 100 mg PO DAILY [facility] Last Admin: 10/15/16 08:32 Dose: 100 mg Valsartan (Diovan) 320 mg PO DAILY [facility] Last Admin: 10/15/16 08:32 Dose: 320 mg Physical Exam - Constitutional Appears: Well, Non-toxic, No Acute Distress - Extremities Exam Additional comments: Bilateral lower extremities exam DERM: No open wound noted. No erythema is noted. No sign of infection noted. Elongated, dystrophic toenails noted to digits x10. VASC: Palpable DP noted bilaterally 2/4, non-palpable DP noted bilaterally. SAMPLE COLLECTOR less than 3 seconds to all digits noted NEURO: Gross sensation intact ORTHO: No pain on palpation, no pain on passive ROM of B/L ankle, MTPJs. Manual muscle testing 5/5 bilaterally. - Neurological Exam Neurological exam: Alert, Oriented x3 - Psychiatric Exam Psychiatric exam: Normal Affect, Normal Mood - Skin Skin Exam: Normal Color, Warm Results - Vital Signs Recent Vital Signs: Last Vital Signs Temp 98.1 F 10/15/16 08:13 Pulse 89 10/15/16 08:33 Resp 20 10/15/16 08:13 BP 140/56 L 10/15/16 08:33 Pulse Ox 100 10/15/16 08:13 - Labs Labs: Laboratory Results - last 24 hr 10/14/16 10/14/16 10/14/16 11:05 16:39 20:52 POC Glucose (mg/dL) 210 H 251 H 148 H 10/15/16 05:50 POC Glucose (mg/dL) 104 Assessment & Plan - Assessment and Plan (Free Text) Assessment: 76 year old diabetic female patient presents with elongated, dystrophic toenails x10 Plan: Patient was seen, evaluated and treated with all questions and concerns addressed labs and vitals reviewed discussed in detail with Dr. Robles Elongated, dystrophic toenails were sharply cut with a large nail nipper up to level of normal length without any incident x10 Patient is stable from podiatry standpoint Podiatry signing off Please re-consult podiatry if any other lower extremity problems occur, thank you
[2016-10-15] MEDS: Insulin Detemir 100 Units/ml Inj SC SCH (21:32)
[2016-10-16] MEDS: Ciprofloxacin 200mg/100ml D5W 100 ML IVPB SCH ×2 (05:12→16:49)
[2016-10-16] MEDS: Levothyroxine 50 MCG TAB PO SCH (06:22)
[2016-10-16] MEDS: Insulin Regular 100 units/ml SC SCH ×4 (06:40→22:25)
[2016-10-16] MEDS: Enoxaparin 40 mg Syringe SC SCH (09:38)
[2016-10-16] MEDS: Pantoprazole 40 mg EC Tab PO SCH (09:41)
[2016-10-16] MEDS: Multivitamin With Minerals Tab PO SCH (09:41)
--- NOTE | 2016-10-16 13:28 | CP.PCM.PN ---
<Jael Camargo - Last Filed: 10/16/16 13:28> Subjective - Date & Time of Evaluation Date of Evaluation: 10/16/16 Time of Evaluation: 10:50 - Subjective Subjective: pt seen and examined at bedside this morning, doing well. does not have any complaints. per nurse pt has an eye doctor's apt tomorrow other than that no issues Objective - Vital Signs/Intake and Output Vital Signs (last 24 hours): Temp Pulse Resp BP Pulse Ox 97.5 F L 85 20 122/46 L 100 10/16/16 08:07 10/16/16 09:39 10/16/16 08:07 10/16/16 09:39 10/16/16 08:07 - Medications Medications: Current Medications Amlodipine Besylate (Norvasc) 5 mg PO DAILY [facility] Last Admin: 10/16/16 09:39 Dose: 5 mg Aspirin (Ecotrin) 81 mg PO DAILY [facility] Last Admin: 10/16/16 09:37 Dose: 81 mg Atorvastatin Calcium (Lipitor) 80 mg PO HS [facility] Last Admin: 10/15/16 21:24 Dose: 80 mg Clopidogrel Bisulfate (Plavix) 75 mg PO DAILY [facility] Last Admin: 10/16/16 09:40 Dose: 75 mg Dextrose (Dextrose 50% Inj) 50 ml IVP STAT PRN PRN Reason: Low blood sugar Enoxaparin Sodium (Lovenox) 40 mg SC DAILY [facility] PRN Reason: Protocol Last Admin: 10/16/16 09:38 Dose: 40 mg Gabapentin (Neurontin) 300 mg PO TID [facility] Last Admin: 10/16/16 12:21 Dose: 300 mg Glucagon (Glucagen Diagnostic Kit) 1 mg IM STAT PRN; Protocol PRN Reason: follow hypoglycemic protocol. Ciprofloxacin (Cipro 200mg/100ml D5w) 100 mls @ 100 mls/hr IVPB Q12@0500,1700 [facility] Last Admin: 10/16/16 05:12 Dose: 100 mls/hr Insulin Detemir (Levemir) 15 units SC HS [facility] Last Admin: 10/15/16 21:32 Dose: 15 units Insulin Human Regular (Humulin R) 0 units SC ACHS [facility] PRN Reason: Protocol Last Admin: 10/16/16 12:18 Dose: 6 units Isosorbide Mononitrate (Imdur) 60 mg PO DAILY [facility] Last Admin: 10/16/16 09:37 Dose: 60 mg Levothyroxine Sodium (Synthroid) 50 mcg PO DAILY@0630 [facility] Last Admin: 10/16/16 06:22 Dose: 50 mcg Metformin HCl (Glucophage) 1,000 mg PO BIDWM [facility] Last Admin: 10/16/16 09:37 Dose: 1,000 mg Multivitamins/Minerals (Therapeutic-M Tab) 1 tab PO DAILY [facility] Last Admin: 10/16/16 09:41 Dose: 1 tab Pantoprazole Sodium (Protonix Ec Tab) 40 mg PO DAILY [facility] Last Admin: 10/16/16 09:41 Dose: 40 mg Pioglitazone HCl (Actos) 30 mg PO DAILY [facility] Last Admin: 10/16/16 09:35 Dose: 30 mg Sitagliptin Phosphate (Januvia) 100 mg PO DAILY [facility] Last Admin: 10/16/16 09:38 Dose: 100 mg Valsartan (Diovan) 320 mg PO DAILY [facility] Last Admin: 10/16/16 09:36 Dose: 320 mg - Constitutional Appears: No Acute Distress - Head Exam Head Exam: NORMOCEPHALIC - ENT Exam ENT Exam: Mucous Membranes Moist - Respiratory Exam Respiratory Exam: Clear to Ausculation Bilateral, NORMAL BREATHING PATTERN. absent: Rhonchi, Wheezes - Cardiovascular Exam Cardiovascular Exam: REGULAR RHYTHM, +S1, +S2 - GI/Abdominal Exam GI & Abdominal Exam: Soft, Normal Bowel Sounds. absent: Tenderness - Neurological Exam Neurological Exam: Alert, Awake Assessment and Plan - Assessment and Plan (Free Text) Assessment: 76 y/o female with a significant medical problems admitted to TCU to complete IV antibiotics and physical therapy Plan: 1. UTI continue with antibiotics 2. Continue with PT as tolerated 3. Home meds resumed 4. Discharge planning: will need placement in subacute/ long term as pt is blind without support if she has to be discharged home then her levemir need to be given in the morning while the nurse aid is around <Davian Merrill - Last Filed: 10/21/16 09:23> Objective - Vital Signs/Intake and Output Vital Signs (last 24 hours): Temp Pulse Resp BP Pulse Ox 98.1 F 88 20 127/49 L 100 10/21/16 08:28 10/21/16 08:28 10/21/16 08:28 10/21/16 08:28 10/21/16 08:28 - Medications Medications: Current Medications Acetaminophen (Tylenol 325mg Tab) 650 mg PO Q4 PRN PRN Reason: Pain, moderate (4-7) Last Admin: 10/17/16 15:07 Dose: 650 mg Amlodipine Besylate (Norvasc) 5 mg PO DAILY [facility] Last Admin: 10/21/16 08:09 Dose: 5 mg Aspirin (Ecotrin) 81 mg PO DAILY [facility] Last Admin: 10/21/16 08:09 Dose: 81 mg Atorvastatin Calcium (Lipitor) 80 mg PO HS [facility] Last Admin: 10/20/16 21:43 Dose: 80 mg Clopidogrel Bisulfate (Plavix) 75 mg PO DAILY [facility] Last Admin: 10/21/16 08:10 Dose: 75 mg Dextrose (Dextrose 50% Inj) 50 ml IVP STAT PRN PRN Reason: Low blood sugar Gabapentin (Neurontin) 300 mg PO TID [facility] Last Admin: 10/21/16 08:09 Dose: 300 mg Glucagon (Glucagen Diagnostic Kit) 1 mg IM STAT PRN; Protocol PRN Reason: follow hypoglycemic protocol. Insulin Detemir (Levemir) 15 units SC [facility] Last Admin: 10/20/16 21:42 Dose: 15 units Insulin Human Regular (Humulin R) 0 units SC [facility] PRN Reason: Protocol Last Admin: 10/21/16 06:30 Dose: Not Given Isosorbide Mononitrate (Imdur) 60 mg PO DAILY [facility] Last Admin: 10/21/16 08:09 Dose: 60 mg Levothyroxine Sodium (Synthroid) 50 mcg PO DAILY@0630 [facility] Last Admin: 10/21/16 06:29 Dose: 50 mcg Metformin HCl (Glucophage) 1,000 mg PO BIDWM [facility] Last Admin: 10/21/16 08:09 Dose: 1,000 mg Multivitamins/Minerals (Therapeutic-M Tab) 1 tab PO DAILY [facility] Last Admin: 10/21/16 08:10 Dose: 1 tab Pantoprazole Sodium (Protonix Ec Tab) 40 mg PO DAILY [facility] Last Admin: 10/21/16 08:10 Dose: 40 mg Pioglitazone HCl (Actos) 30 mg PO DAILY [facility] Last Admin: 10/21/16 08:10 Dose: 30 mg Sitagliptin Phosphate (Januvia) 100 mg PO DAILY [facility] Last Admin: 10/21/16 08:10 Dose: 100 mg Valsartan (Diovan) 320 mg PO DAILY [facility] Last Admin: 10/21/16 08:10 Dose: 320 mg Assessment and Plan (1) Blind in both eyes Status: Acute (2) CAD (coronary artery disease) Status: Acute (3) Diabetes mellitus type 2 in nonobese Status: Acute (4) HTN (hypertension) Status: Acute (5) Hypothyroidism Status: Acute (6) Physical debility Status: Acute - Assessment and Plan (Free Text) Plan: I was present during evaluation and discussed with Dr Mary Jo gamble plans of care Davian Merrill M.D.
[2016-10-16] MEDS: Insulin Detemir 100 Units/ml Inj SC SCH (22:25)
[2016-10-17] MEDS: Ciprofloxacin 200mg/100ml D5W 100 ML IVPB SCH ×2 (05:16→17:35)
[2016-10-17] MEDS: Insulin Regular 100 units/ml SC SCH ×4 (06:35→22:12)
[2016-10-17] MEDS: Levothyroxine 50 MCG TAB PO SCH (06:35)
[2016-10-17] MEDS: Enoxaparin 40 mg Syringe SC SCH (08:36)
[2016-10-17] MEDS: Multivitamin With Minerals Tab PO SCH (08:38)
[2016-10-17] MEDS: Pantoprazole 40 mg EC Tab PO SCH (08:38)
[2016-10-17] MEDS: Insulin Detemir 100 Units/ml Inj SC SCH (22:20)
[2016-10-18] MEDS: Ciprofloxacin 200mg/100ml D5W 100 ML IVPB SCH ×2 (05:15→17:32)
[2016-10-18] MEDS: Insulin Regular 100 units/ml SC SCH ×4 (06:46→21:09)
[2016-10-18] MEDS: Levothyroxine 50 MCG TAB PO SCH (06:46)
[2016-10-18] MEDS: Multivitamin With Minerals Tab PO SCH (09:07)
[2016-10-18] MEDS: Enoxaparin 40 mg Syringe SC SCH (09:08)
[2016-10-18] MEDS: Pantoprazole 40 mg EC Tab PO SCH (09:09)
[2016-10-18] MEDS: Insulin Detemir 100 Units/ml Inj SC SCH (21:09)
[2016-10-19] MEDS: Ciprofloxacin 200mg/100ml D5W 100 ML IVPB SCH (05:22)
[2016-10-19] MEDS: Levothyroxine 50 MCG TAB PO SCH (05:32)
[2016-10-19] MEDS: Insulin Regular 100 units/ml SC SCH ×4 (06:42→21:08)
[2016-10-19] MEDS: Pantoprazole 40 mg EC Tab PO SCH (08:45)
[2016-10-19] MEDS: Multivitamin With Minerals Tab PO SCH (08:45)
--- NOTE | 2016-10-19 12:37 | CP.PCM.PN ---
Subjective - Date & Time of Evaluation Date of Evaluation: 10/17/16 Time of Evaluation: 10:00 - Subjective Subjective: Patient remains well Has no chest pain or SOB accuchecks still elevated. Noted to have elevated FBS Has no chest pain or SOB. Objective - Vital Signs/Intake and Output Vital Signs (last 24 hours): Temp Pulse Resp BP Pulse Ox 97.7 F 80 20 110/61 100 10/19/16 08:23 10/19/16 08:44 10/19/16 08:23 10/19/16 08:44 10/19/16 08:23 - Medications Medications: Current Medications Acetaminophen (Tylenol 325mg Tab) 650 mg PO Q4 PRN PRN Reason: Pain, moderate (4-7) Last Admin: 10/17/16 15:07 Dose: 650 mg Amlodipine Besylate (Norvasc) 5 mg PO DAILY [facility] Last Admin: 10/19/16 08:44 Dose: 5 mg Aspirin (Ecotrin) 81 mg PO DAILY [facility] Last Admin: 10/19/16 08:43 Dose: 81 mg Atorvastatin Calcium (Lipitor) 80 mg PO [facility] Last Admin: 10/18/16 21:09 Dose: 80 mg Clopidogrel Bisulfate (Plavix) 75 mg PO DAILY [facility] Last Admin: 10/19/16 08:45 Dose: 75 mg Dextrose (Dextrose 50% Inj) 50 ml IVP STAT PRN PRN Reason: Low blood sugar Gabapentin (Neurontin) 300 mg PO TID [facility] Last Admin: 10/19/16 08:44 Dose: 300 mg Glucagon (Glucagen Diagnostic Kit) 1 mg IM STAT PRN; Protocol PRN Reason: follow hypoglycemic protocol. Insulin Detemir (Levemir) 15 units SC [facility] Last Admin: 10/18/16 21:09 Dose: 15 units Insulin Human Regular (Humulin R) 0 units SC [facility] PRN Reason: Protocol Last Admin: 10/19/16 11:14 Dose: 4 units Isosorbide Mononitrate (Imdur) 60 mg PO DAILY [facility] Last Admin: 10/19/16 08:44 Dose: 60 mg Levothyroxine Sodium (Synthroid) 50 mcg PO DAILY@0630 [facility] Last Admin: 10/19/16 05:32 Dose: 50 mcg Metformin HCl (Glucophage) 1,000 mg PO BIDWM [facility] Last Admin: 10/19/16 08:44 Dose: 1,000 mg Multivitamins/Minerals (Therapeutic-M Tab) 1 tab PO DAILY [facility] Last Admin: 10/19/16 08:45 Dose: 1 tab Pantoprazole Sodium (Protonix Ec Tab) 40 mg PO DAILY [facility] Last Admin: 10/19/16 08:45 Dose: 40 mg Pioglitazone HCl (Actos) 30 mg PO DAILY [facility] Last Admin: 10/19/16 08:43 Dose: 30 mg Sitagliptin Phosphate (Januvia) 100 mg PO DAILY [facility] Last Admin: 10/19/16 08:44 Dose: 100 mg Valsartan (Diovan) 320 mg PO DAILY [facility] Last Admin: 10/19/16 08:43 Dose: 320 mg - Head Exam Head Exam: NORMAL INSPECTION - Eye Exam Eye Exam: Normal appearance - ENT Exam ENT Exam: Mucous Membranes Moist - Respiratory Exam Respiratory Exam: Clear to Ausculation Bilateral - Cardiovascular Exam Cardiovascular Exam: REGULAR RHYTHM - GI/Abdominal Exam GI & Abdominal Exam: Normal Bowel Sounds - Neurological Exam Neurological Exam: Awake, Oriented x3 Assessment and Plan (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
--- NOTE | 2016-10-19 12:38 | CP.PCM.PN ---
Subjective - Date & Time of Evaluation Date of Evaluation: 10/18/16 Time of Evaluation: 09:10 - Subjective Subjective: Patient remains stable Doing well with PT Has no chest pain or SOB Afebrile Objective - Vital Signs/Intake and Output Vital Signs (last 24 hours): Temp Pulse Resp BP Pulse Ox 97.7 F 80 20 110/61 100 10/19/16 08:23 10/19/16 08:44 10/19/16 08:23 10/19/16 08:44 10/19/16 08:23 - Medications Medications: Current Medications Acetaminophen (Tylenol 325mg Tab) 650 mg PO Q4 PRN PRN Reason: Pain, moderate (4-7) Last Admin: 10/17/16 15:07 Dose: 650 mg Amlodipine Besylate (Norvasc) 5 mg PO DAILY [facility] Last Admin: 10/19/16 08:44 Dose: 5 mg Aspirin (Ecotrin) 81 mg PO DAILY [facility] Last Admin: 10/19/16 08:43 Dose: 81 mg Atorvastatin Calcium (Lipitor) 80 mg PO [facility] Last Admin: 10/18/16 21:09 Dose: 80 mg Clopidogrel Bisulfate (Plavix) 75 mg PO DAILY [facility] Last Admin: 10/19/16 08:45 Dose: 75 mg Dextrose (Dextrose 50% Inj) 50 ml IVP STAT PRN PRN Reason: Low blood sugar Gabapentin (Neurontin) 300 mg PO TID [facility] Last Admin: 10/19/16 08:44 Dose: 300 mg Glucagon (Glucagen Diagnostic Kit) 1 mg IM STAT PRN; Protocol PRN Reason: follow hypoglycemic protocol. Insulin Detemir (Levemir) 15 units SC [facility] Last Admin: 10/18/16 21:09 Dose: 15 units Insulin Human Regular (Humulin R) 0 units SC [facility] PRN Reason: Protocol Last Admin: 10/19/16 11:14 Dose: 4 units Isosorbide Mononitrate (Imdur) 60 mg PO DAILY [facility] Last Admin: 10/19/16 08:44 Dose: 60 mg Levothyroxine Sodium (Synthroid) 50 mcg PO DAILY@0630 [facility] Last Admin: 10/19/16 05:32 Dose: 50 mcg Metformin HCl (Glucophage) 1,000 mg PO BIDWM [facility] Last Admin: 10/19/16 08:44 Dose: 1,000 mg Multivitamins/Minerals (Therapeutic-M Tab) 1 tab PO DAILY [facility] Last Admin: 10/19/16 08:45 Dose: 1 tab Pantoprazole Sodium (Protonix Ec Tab) 40 mg PO DAILY [facility] Last Admin: 10/19/16 08:45 Dose: 40 mg Pioglitazone HCl (Actos) 30 mg PO DAILY [facility] Last Admin: 10/19/16 08:43 Dose: 30 mg Sitagliptin Phosphate (Januvia) 100 mg PO DAILY [facility] Last Admin: 10/19/16 08:44 Dose: 100 mg Valsartan (Diovan) 320 mg PO DAILY [facility] Last Admin: 10/19/16 08:43 Dose: 320 mg - Head Exam Head Exam: NORMAL INSPECTION - Eye Exam Eye Exam: Normal appearance - ENT Exam ENT Exam: Mucous Membranes Moist - Respiratory Exam Respiratory Exam: Clear to Ausculation Bilateral - Cardiovascular Exam Cardiovascular Exam: REGULAR RHYTHM - GI/Abdominal Exam GI & Abdominal Exam: Normal Bowel Sounds - Neurological Exam Neurological Exam: Oriented x3 Assessment and Plan (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
--- NOTE | 2016-10-19 12:39 | CP.PCM.PN ---
Subjective - Date & Time of Evaluation Date of Evaluation: 10/19/16 Time of Evaluation: 12:38 - Subjective Subjective: Patient complain soft loose stools for 3 to 4 times since last night Had just finished a course of Cipro. Has no chest pain or SOB Afebrile. Objective - Vital Signs/Intake and Output Vital Signs (last 24 hours): Temp Pulse Resp BP Pulse Ox 97.7 F 80 20 110/61 100 10/19/16 08:23 10/19/16 08:44 10/19/16 08:23 10/19/16 08:44 10/19/16 08:23 - Medications Medications: Current Medications Acetaminophen (Tylenol 325mg Tab) 650 mg PO Q4 PRN PRN Reason: Pain, moderate (4-7) Last Admin: 10/17/16 15:07 Dose: 650 mg Amlodipine Besylate (Norvasc) 5 mg PO DAILY [facility] Last Admin: 10/19/16 08:44 Dose: 5 mg Aspirin (Ecotrin) 81 mg PO DAILY [facility] Last Admin: 10/19/16 08:43 Dose: 81 mg Atorvastatin Calcium (Lipitor) 80 mg PO [facility] Last Admin: 10/18/16 21:09 Dose: 80 mg Clopidogrel Bisulfate (Plavix) 75 mg PO DAILY [facility] Last Admin: 10/19/16 08:45 Dose: 75 mg Dextrose (Dextrose 50% Inj) 50 ml IVP STAT PRN PRN Reason: Low blood sugar Gabapentin (Neurontin) 300 mg PO TID [facility] Last Admin: 10/19/16 08:44 Dose: 300 mg Glucagon (Glucagen Diagnostic Kit) 1 mg IM STAT PRN; Protocol PRN Reason: follow hypoglycemic protocol. Insulin Detemir (Levemir) 15 units SC [facility] Last Admin: 10/18/16 21:09 Dose: 15 units Insulin Human Regular (Humulin R) 0 units SC [facility] PRN Reason: Protocol Last Admin: 10/19/16 11:14 Dose: 4 units Isosorbide Mononitrate (Imdur) 60 mg PO DAILY [facility] Last Admin: 10/19/16 08:44 Dose: 60 mg Levothyroxine Sodium (Synthroid) 50 mcg PO DAILY@0630 [facility] Last Admin: 10/19/16 05:32 Dose: 50 mcg Metformin HCl (Glucophage) 1,000 mg PO BIDWM [facility] Last Admin: 10/19/16 08:44 Dose: 1,000 mg Multivitamins/Minerals (Therapeutic-M Tab) 1 tab PO DAILY [facility] Last Admin: 10/19/16 08:45 Dose: 1 tab Pantoprazole Sodium (Protonix Ec Tab) 40 mg PO DAILY [facility] Last Admin: 10/19/16 08:45 Dose: 40 mg Pioglitazone HCl (Actos) 30 mg PO DAILY [facility] Last Admin: 10/19/16 08:43 Dose: 30 mg Sitagliptin Phosphate (Januvia) 100 mg PO DAILY [facility] Last Admin: 10/19/16 08:44 Dose: 100 mg Valsartan (Diovan) 320 mg PO DAILY [facility] Last Admin: 10/19/16 08:43 Dose: 320 mg - Head Exam Head Exam: NORMAL INSPECTION - Eye Exam Eye Exam: Normal appearance - ENT Exam ENT Exam: Mucous Membranes Moist - Respiratory Exam Respiratory Exam: Clear to Ausculation Bilateral - Cardiovascular Exam Cardiovascular Exam: REGULAR RHYTHM - Neurological Exam Neurological Exam: Awake, Oriented x3 Assessment and Plan (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
[2016-10-19] MEDS: Insulin Detemir 100 Units/ml Inj SC SCH (21:08)
[2016-10-20] MEDS: Levothyroxine 50 MCG TAB PO SCH (06:08)
[2016-10-20] MEDS: Insulin Regular 100 units/ml SC SCH ×4 (06:34→21:39)
[2016-10-20 08:25] VITALS: RESP 20
[2016-10-20] MEDS: Multivitamin With Minerals Tab PO SCH (08:31)
[2016-10-20] MEDS: Pantoprazole 40 mg EC Tab PO SCH (08:31)
[2016-10-20] MEDS: Insulin Detemir 100 Units/ml Inj SC SCH (21:42)
[2016-10-21] MEDS: Levothyroxine 50 MCG TAB PO SCH (06:29)
[2016-10-21] MEDS: Insulin Regular 100 units/ml SC SCH ×2 (06:30→12:06)
[2016-10-21 08:10] VITALS: PULSE 88
[2016-10-21] MEDS: Multivitamin With Minerals Tab PO SCH (08:10)
[2016-10-21] MEDS: Pantoprazole 40 mg EC Tab PO SCH (08:10)
[2016-10-21 08:29] VITALS: BP 127/49; TEMP 98.1; O2SAT 100
--- NOTE | 2016-10-21 09:31 | CP.PCM.PN ---
Subjective - Date & Time of Evaluation Date of Evaluation: 10/20/16 Time of Evaluation: 09:29 - Subjective Subjective: Patient feels a lot better 'Has soft stool but no diarrhea. Has no fever Accchecks are still elevated. Objective - Vital Signs/Intake and Output Vital Signs (last 24 hours): Temp Pulse Resp BP Pulse Ox 98.1 F 88 20 127/49 L 100 10/21/16 08:28 10/21/16 08:28 10/21/16 08:28 10/21/16 08:28 10/21/16 08:28 - Medications Medications: Current Medications Acetaminophen (Tylenol 325mg Tab) 650 mg PO Q4 PRN PRN Reason: Pain, moderate (4-7) Last Admin: 10/17/16 15:07 Dose: 650 mg Amlodipine Besylate (Norvasc) 5 mg PO DAILY [facility] Last Admin: 10/21/16 08:09 Dose: 5 mg Aspirin (Ecotrin) 81 mg PO DAILY [facility] Last Admin: 10/21/16 08:09 Dose: 81 mg Atorvastatin Calcium (Lipitor) [address] [facility] Last Admin: 10/20/16 21:43 Dose: 80 mg Clopidogrel Bisulfate (Plavix) 75 mg PO DAILY [facility] Last Admin: 10/21/16 08:10 Dose: 75 mg Dextrose (Dextrose 50% Inj) 50 ml IVP STAT PRN PRN Reason: Low blood sugar Gabapentin (Neurontin) 300 mg PO TID [facility] Last Admin: 10/21/16 08:09 Dose: 300 mg Glucagon (Glucagen Diagnostic Kit) 1 mg IM STAT PRN; Protocol PRN Reason: follow hypoglycemic protocol. Insulin Detemir (Levemir) [address] [facility] Last Admin: 10/20/16 21:42 Dose: 15 units Insulin Human Regular (Humulin R) 0 units SC [facility] PRN Reason: Protocol Last Admin: 10/21/16 06:30 Dose: Not Given Isosorbide Mononitrate (Imdur) 60 mg PO DAILY [facility] Last Admin: 10/21/16 08:09 Dose: 60 mg Levothyroxine Sodium (Synthroid) 50 mcg PO DAILY@0630 [facility] Last Admin: 10/21/16 06:29 Dose: 50 mcg Metformin HCl (Glucophage) 1,000 mg PO BIDWM [facility] Last Admin: 10/21/16 08:09 Dose: 1,000 mg Multivitamins/Minerals (Therapeutic-M Tab) 1 tab PO DAILY [facility] Last Admin: 10/21/16 08:10 Dose: 1 tab Pantoprazole Sodium (Protonix Ec Tab) 40 mg PO DAILY [facility] Last Admin: 10/21/16 08:10 Dose: 40 mg Pioglitazone HCl (Actos) 30 mg PO DAILY [facility] Last Admin: 10/21/16 08:10 Dose: 30 mg Sitagliptin Phosphate (Januvia) 100 mg PO DAILY [facility] Last Admin: 10/21/16 08:10 Dose: 100 mg Valsartan (Diovan) 320 mg PO DAILY [facility] Last Admin: 10/21/16 08:10 Dose: 320 mg - Head Exam Head Exam: NORMAL INSPECTION - Eye Exam Eye Exam: Normal appearance - ENT Exam ENT Exam: Mucous Membranes Moist - Respiratory Exam Respiratory Exam: Clear to Ausculation Bilateral, NORMAL BREATHING PATTERN - Cardiovascular Exam Cardiovascular Exam: REGULAR RHYTHM - Neurological Exam Neurological Exam: Oriented x3 - Psychiatric Exam Psychiatric exam: Normal Mood Assessment and Plan (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
--- NOTE | 2016-10-21 09:33 | CP.PCM.DIS ---
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 Her medications were adjusted and accuchecks have improved. She had loose stools after a course of cipro. Discharge Exam - Head Exam Head Exam: NORMAL INSPECTION - Eye Exam Eye Exam: Normal appearance - Respiratory Exam Respiratory Exam: NORMAL BREATHING PATTERN - Cardiovascular Exam Cardiovascular Exam: REGULAR RHYTHM - GI/Abdominal Exam GI & Abdominal Exam: Normal Bowel Sounds - Neurological Exam Neurological exam: CN II-XII Intact, Oriented x3 - Psychiatric Exam Psychiatric exam: Normal Mood Discharge Plan - Follow Up Plan Condition: GOOD Disposition: HOME/ ROUTINE Additional Instructions: send patient on current po meds advised folow up with Dr Romero in 1 week.
== END 2016-10-21 15:30 | disposition home or self-care (01) | DRG 690 ==
LOC: H.TCU 18:24
PROVIDERS: ADMIT Family Medicine; ATTEND Family Medicine
PROC: F07L6ZZ Therapeutic Exercise Treatment of Musculoskeletal System - Lower Back / Lower Extremity (ICD-10-PCS; 2016-10-12)
PROC: F08Z4FZ Home Management Treatment using Assistive, Adaptive, Supportive or Protective Equipment (ICD-10-PCS; 2016-10-13)
PROC: 0HBRXZZ Excision of Toe Nail, External Approach (ICD-10-PCS; principal; 2016-10-15)
DX: N39.0 Urinary tract infection, site not specified (principal); E11.649 Type 2 diabetes mellitus with hypoglycemia without coma; E11.65 Type 2 diabetes mellitus with hyperglycemia; I10 Essential (primary) hypertension; I25.10 Atherosclerotic heart disease of native coronary artery without angina pectoris; E78.00 Pure hypercholesterolemia, unspecified; H54.0 Blindness, both eyes; E03.9 Hypothyroidism, unspecified; K21.9 Gastro-esophageal reflux disease without esophagitis; Z87.440 Personal history of urinary (tract) infections; Z90.49 Acquired absence of other specified parts of digestive tract; Z95.1 Presence of aortocoronary bypass graft; R53.81 Other malaise; L60.3 Nail dystrophy; R53.1 Weakness

== ENCOUNTER 2017-07-05 17:13 | Observation (INO) | payer MEDICARE, MEDICAID ==
[2017-07-05 17:14] VITALS: BMI 25.7
[2017-07-05] MEDS ORDERED: Sodium Chloride 0.9% 1,000 ML IV STA (18:35)
--- NOTE | 2017-07-05 18:40 | ED PDOC ---
Hyperglycemia/Hypoglycemia Time Seen by Provider: 07/05/17 17:45 Chief Complaint (Nursing): Weakness/Neurological Deficit : The patient does not have any of the infectious symptoms listed except for those marked. Additional Complaint(s): Pt BIBA with c/o nausea, dizziness, vertigo and SOB this AM. States she similar sxs when her sugar is low, did not eat dinner tonight, took usual dose of Insulin and PO meds. Denies CP, palpitations. Past Medical History Vital Signs: Last Vital Signs Temp 95.7 F L 07/05/17 17:17 Pulse 74 07/05/17 17:17 Resp 20 07/05/17 17:17 BP 99/51 L 07/05/17 17:17 Pulse Ox 96 07/05/17 17:17 - Medical History PMH: Anxiety, Arthritis, CAD, HTN, Hypothyroidism Denies: Asthma, Bronchitis, COPD, HIV, Hypercholesterolemia, Mitral Valve Prolapse, Peripheral Edema, Chronic Kidney Disease - Surgical History Surgical History: Appendectomy, CABG, Cholecystectomy Denies: Pacemaker - Family History Family History: States: CAD - Living Arrangements Living Arrangements: Alone - Social History Current smoker - smoking cessation education provided: No - Home Medications Home Medications: Ambulatory Orders Medication Instructions Recorded Aspirin [Ecotrin] 81 mg PO DAILY 10/08/16 Atorvastatin [Lipitor] 80 mg PO DAILY 10/08/16 Clopidogrel [Plavix] 75 mg PO DAILY 10/08/16 Dexlansoprazole [Dexilant] 60 mg PO DAILY 10/08/16 Gabapentin [Neurontin] 300 mg PO TID 10/08/16 Insulin Detemir [Levemir] 20 unit SQ DAILY 10/08/16 Isosorbide Mononitrate [Imdur] 60 mg PO DAILY 10/08/16 Levothyroxine [Synthroid] 50 mcg PO DAILY 10/08/16 Multivitamin [Daily Vitamin 1 tab PO DAILY 10/08/16 Formula] Valsartan [Diovan] 320 mg PO DAILY 10/08/16 amLODIPine [Norvasc] 5 mg PO DAILY 10/08/16 Pantoprazole [Protonix EC Tab] 40 mg PO DAILY 10/12/16 Pioglitazone [Actos] 30 mg PO DAILY 10/12/16 SITagliptin [Januvia] 100 mg PO DAILY 10/12/16 MetFORMIN [glucoPHAGE] 1,000 mg PO BIDWM #30 tab 10/21/16 - Allergies Allergies/Adverse Reactions: Allergies Allergy/AdvReac Type Severity Reaction Status Date / Time No Known Allergies Allergy Verified 10/12/16 18:24 Review of Systems Constitutional: Negative for: Fever Cardiovascular: Negative for: Chest Pain, Palpitations Respiratory: Positive for: Shortness of Breath (Resolved). Negative for: Cough , SOB with Exertion Gastrointestinal: Positive for: Nausea. Negative for: Vomiting, Abdominal Pain , Diarrhea Genitourinary Female: Negative for: Dysuria, Hematuria Musculoskeletal: Negative for: Neck Pain, Back Pain Skin: Negative for: Rash, Lesions Neurological: Positive for: Weakness (Generalized), Headache, Dizziness. Negative for: Numbness, Seizures Physical Exam - Reviewed Nursing Documentation Reviewed: Yes Vital Signs Reviewed: Yes - Physical Exam Appears: Positive for: Well, No Acute Distress Head Exam: Positive for: ATRAUMATIC, NORMAL INSPECTION Skin: Positive for: Normal Color, Warm, Dry Eye Exam: Positive for: Other (Bilateral corneal haziness (chronic)). Negative for: Normal appearance Neck: Positive for: Normal, Painless ROM, Supple Cardiovascular/Chest: Positive for: Regular Rate, Rhythm Respiratory: Positive for: Normal Breath Sounds. Negative for: Rales, Rhonchi, Wheezing Gastrointestinal/Abdominal: Positive for: Normal Exam, Bowel Sounds, Soft. Negative for: Tenderness Extremity: Positive for: Normal ROM. Negative for: Pedal Edema, Swelling Neurologic/Psych: Positive for: Alert, electrotype caster II-XII, Oriented. Negative for: Motor/Sensory Deficits, Aphasia, Facial Droop - Laboratory Results Result Diagrams: 07/05/17 18:41 07/05/17 18:41 - ECG O2 Sat by Pulse Oximetry: 96 Medical Decision Making Medical Decision Makin yo female with nausea, vertigo, generalized weakness and hypoglycemia. - labs - EKG - CT head - IVF - Meclizine --19:00 Patient to be signed out to Dr. Tima Badillo pending labs and imaging. Disposition - Clinical Impression Clinical Impression: Vertigo, Hypoglycemia - Patient ED Disposition Is Patient to be Admitted: Transfer of Care Discussed With : Tima Badillo Doctor Will See Patient In The: ED - Disposition Disposition: Transfer of Care Disposition Time: 19:00 (pending labs and imaging) Condition: FAIR Forms: [place] ([place])
[2017-07-05 18:58] LABS: BASO # 0.1 K/uL (0.0-0.2); BASO % 0.6 % (0.0-2.0); EOS # 0.1 K/uL (0.0-0.7); EOS % 0.7 % (0.0-4.0); HEMATOCRIT 28.6 % (34.0-47.0); LYMPH # 1.7 K/uL (1.0-4.3); LYMPH % 21.5 % (20.0-40.0); MEAN CELL VOLUME 72.2 fl (81.0-99.0); MEAN CORPUSCULAR HEMOGLOBIN 22.9 pg (27.0-31.0); MEAN CORPUSCULAR HGB CONC 31.7 g/dL (33.0-37.0); MEAN PLATELET VOLUME 8.4 fl (7.2-11.7); MONO # 0.9 K/uL (0.0-0.8); NEUT # 5.3 K/uL (1.8-7.0); NEUT % 66.2 % (50.0-75.0); RED CELL DISTRIBUTION WIDTH 18.6 % (11.5-14.5)
[2017-07-05 19:05] LABS: BILIRUBIN,TOTAL 0.3 mg/dl (0.2-1.3); CALCIUM 9.8 mg/dL (8.4-10.2); POTASSIUM 3.1 MMOL/L (3.6-5.0); TOTAL PROTEIN 8.4 G/DL (6.3-8.2)
[2017-07-05 19:16] LABS: TROPONIN I 0.016 ng/mL (0.00-0.120)
[2017-07-05 19:18] LABS: ALB/GLOB RATIO 1.3 (1.0-2.1)
--- NOTE | 2017-07-05 19:29 | ED PDOC ---
- Laboratory Results Result Diagrams: 07/05/17 18:41 07/05/17 18:41 - ECG O2 Sat by Pulse Oximetry: 96 (RA) Pulse Ox Interpretation: Normal Medical Decision Making Medical Decision Making: --19:00 Patient signed out to me by Dr. Ana Paula Clark pending labs and imaging. Reassess --18:33 FINDINGS:CT Head Without Intravenous Contrast Brain: There is prominence of sulci gyri and ventricles. There is no midline shift. There is minimal decreased attenuation in periventricular white matter. 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 There are no focal masses. There are no focal hemorrhages. Guo-white differentiation is visualized. Ventricles: See above Bones: Cranial vault is intact. Soft tissues: unremarkable Sinuses: There is no acute sinusitis. Ears and mastoids: Middle ears and mastoids are unremarkable. Orbits: There are no acute orbital abnormalities. There are postsurgical changes bilaterally. IMPRESSION: No acute intracranial abnormality --20:00 Patient to be admitted to Dr. Mtz, provider covering Dr. Merrill, for observation for generalized weakness and hypoglycemia Scribe Attestation: Documented by Lit Aquino acting as a scribe for Tima Badillo MD. Disposition Discussed With : Davian Merrill Doctor Will See Patient In The: Hospital - Clinical Impression Clinical Impression: Vertigo, Hypoglycemia, Episode of generalized weakness - POA Present On Arrival: None - Disposition Disposition: Admitted as In-Patient Disposition Time: 20:00 (for observation) Condition: FAIR
[2017-07-05 19:39] LABS: PARTIAL THROMBOPLASTIN TIME 24.6 Seconds (25.6-37.1)
--- NOTE | 2017-07-05 19:56 | CT ---
EXAM: CT Head Without Intravenous Contrast EXAM DATE/TIME: 07/05/2017 6:33 PM CLINICAL HISTORY: 77 years old, female; Signs and symptoms; Dizziness; Additional info: Vertigo TECHNIQUE: Axial computed tomography images of the head/brain without intravenous contrast. All CT scans at this facility use one or more dose reduction techniques, viz.: automated exposure control; ma/kV adjustment per patient size (including targeted exams where dose is matched to indication; i.e. head); or iterative reconstruction technique. Coronal and sagittal reformatted images were created and reviewed. COMPARISON: CT - HEAD W/O CONTRAST 2014-03-25 22:03 FINDINGS: Brain: There is prominence of sulci gyri and ventricles. There is no midline shift. There is minimal decreased attenuation in periventricular white matter. 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 There are no focal masses. There are no focal hemorrhages. Guo-white differentiation is visualized. Ventricles: See above Bones: Cranial vault is intact. Soft tissues: unremarkable Sinuses: There is no acute sinusitis. Ears and mastoids: Middle ears and mastoids are unremarkable. Orbits: There are no acute orbital abnormalities. There are postsurgical changes bilaterally. IMPRESSION: No acute intracranial abnormality
[2017-07-05] MEDS ORDERED: Bismuth Subsalicylate 262 mg Chew Tab PO PRN (22:21)
[2017-07-05] MEDS ORDERED: Potassium CL 10 MEQ/50 ML 50 ML IVPB SCH (23:00)
[2017-07-06] MEDS: Potassium CL 10 MEQ/50 ML 50 ML IVPB SCH ×6 (00:46→06:51)
[2017-07-06 04:01] LABS: C DIFF TOXIN A B NEGATIVE (NEGATIVE)
[2017-07-06 06:21] LABS: HEMATOCRIT 26.1 % (34.0-47.0); MEAN CELL VOLUME 70.8 fl (81.0-99.0); MEAN CORPUSCULAR HEMOGLOBIN 23.4 pg (27.0-31.0); MEAN CORPUSCULAR HGB CONC 33.1 g/dL (33.0-37.0); RED CELL DISTRIBUTION WIDTH 18.4 % (11.5-14.5); WHITE BLOOD COUNT 6.5 K/uL (4.8-10.8)
[2017-07-06 06:35] LABS: ALB/GLOB RATIO 1.2 (1.0-2.1); ALKALINE PHOSPHATASE 133 U/L (38-126); ALT/SGPT 27 U/L (9-52); AST/SGOT 33 U/L (14-36); BILIRUBIN,TOTAL 0.3 mg/dl (0.2-1.3); BLOOD UREA NITROGEN 15 mg/dl (7-17); CALCIUM 9.4 mg/dL (8.4-10.2); CARBON DIOXIDE 25 mmol/L (22-30); CHLORIDE 103 mmol/L (98-107); GFR AFRICAN-AMERICAN > 60; GLUCOSE,RANDOM 218 mg/dL (65-105); POTASSIUM 5.1 MMOL/L (3.6-5.0); SODIUM 138 mmol/l (132-148); TOTAL PROTEIN 7.5 G/DL (6.3-8.2)
[2017-07-06 06:46] LABS: T4 10.5 ug/dl (5.5-11.0)
[2017-07-06 07:00] LABS: THYROID STIMULATING HORMONE 2.23 mIU/ML (0.46-4.68)
[2017-07-06] MEDS ORDERED: Insulin Lispro (humaLOG) 100 Units/ml Inj SC SCH (07:30)
[2017-07-06 07:35] VITALS: PULSE 95; RESP 20; TEMP 98.5; O2SAT 98
[2017-07-06] MEDS ORDERED: Enoxaparin 40 mg Syringe SC SCH ×2 (09:00)
[2017-07-06] MEDS ORDERED: Enoxaparin 60 mg Syringe SC SCH (09:00)
[2017-07-06] MEDS ORDERED: Levothyroxine 50 MCG TAB PO SCH (09:00)
[2017-07-06] MEDS ORDERED: Influenza Vaccine 18yr & older 0.5 ML/45 MCG SYR IM ONE (09:00)
[2017-07-06] MEDS ORDERED: Pantoprazole 40 mg EC Tab PO SCH (09:00)
[2017-07-06] MEDS ORDERED: Insulin Detemir 100 Units/ml Inj SC SCH (09:00)
[2017-07-06] MEDS ORDERED: Pneumococcal 23-Valent Vaccine IM ONE (09:00)
[2017-07-06 09:35] VITALS: BP 147/77
--- NOTE | 2017-07-06 12:25 | RAD ---
HISTORY: Dizziness COMPARISON: 10/08/2016 FINDINGS: LUNGS: No active pulmonary disease. PLEURA: No significant pleural effusion identified, no pneumothorax apparent. CARDIOVASCULAR: No radiographic findings to suggest acute or significant cardiovascular disease. Incidental Finding(s): Postoperative changes related to sternotomy. OSSEOUS STRUCTURES: No significant abnormalities. VISUALIZED UPPER ABDOMEN: Normal. OTHER FINDINGS: None. IMPRESSION: No active disease. No significant interval change compared to the prior examination(s).
--- NOTE | 2017-07-06 12:47 | CP.PCM.PCO ---
Assessment/Plan - Assessment/Plan Assessment (Free Text): Pt stable, in no apparent distress. Pt aaox3, heart S1S2, lungs clear, abdomen soft, non-tender. Pt's BG 100s-200s, pt tolerating diet, no diarrhea reported. Labs and imaging reviewed. Pt seen and cleared for d/c home by Dr. Mtz. Pt to resume home meds and f/u with PMD Dr. Denise Romero. Pt's daughter in law at bedside, states she will take pt home. RN aware of plan.
[2017-07-06 15:58] LABS: FECAL LEUKOCYTES NEGATIVE (NEGATIVE)
== END 2017-07-06 14:41 | disposition home health service (06) ==
LOC: H.ER 17:13 → INTOOBSV 20:04 → H.ERHOLD 20:04 → H.MEDSURG1 21:14
PROVIDERS: ADMIT Internal Medicine; ATTEND Internal Medicine
DX: E16.2 Hypoglycemia, unspecified (principal); E03.9 Hypothyroidism, unspecified; I10 Essential (primary) hypertension; I25.10 Atherosclerotic heart disease of native coronary artery without angina pectoris; Z79.02 Long term (current) use of antithrombotics/antiplatelets; Z79.4 Long term (current) use of insulin; Z79.82 Long term (current) use of aspirin; Z79.899 Other long term (current) drug therapy; Z95.1 Presence of aortocoronary bypass graft; F41.9 Anxiety disorder, unspecified; M19.90 Unspecified osteoarthritis, unspecified site; Z79.84 Long term (current) use of oral hypoglycemic drugs
CPT/HCPCS: 36415; 70450; 71010; 80053; 82607; 82948; 84436; 84443; 84480; 84484; 85025; 85027; 85610; 85730; 87045; 87177; 87209; 87230; 89055; 96360; 96361; 99284; G0378; J1650; J3480; J7040

== ENCOUNTER 2018-06-07 18:35 | Observation (INO) | payer MEDICARE, MEDICAID ==
[2018-06-07 20:04] LABS: BASO # 0.1 K/uL (0.0-0.2); BASO % 0.6 % (0.0-2.0); EOS # 0.1 K/uL (0.0-0.7); EOS % 0.7 % (0.0-4.0); LYMPH # 1.7 K/uL (1.0-4.3); LYMPH % 16.7 % (20.0-40.0); MEAN CELL VOLUME 88.7 fl (81.0-99.0); MEAN CORPUSCULAR HEMOGLOBIN 28.9 pg (27.0-31.0); MEAN CORPUSCULAR HGB CONC 32.6 g/dL (33.0-37.0); MEAN PLATELET VOLUME 8.4 fl (7.2-11.7); MONO # 0.7 K/uL (0.0-0.8); MONO % 7.2 % (0.0-10.0); NEUT # 7.8 K/uL (1.8-7.0); NEUT % 74.8 % (50.0-75.0); RBC 3.79 Mil/uL (3.80-5.20); RED CELL DISTRIBUTION WIDTH 14.1 % (11.5-14.5); WHITE BLOOD COUNT 10.4 K/uL (4.8-10.8)
[2018-06-07 20:26] LABS: PROTHROMBIN TIME 11.2 Seconds (9.8-13.1)
[2018-06-07 20:29] LABS: PARTIAL THROMBOPLASTIN TIME 27.3 Seconds (25.6-37.1)
[2018-06-07 20:34] LABS: ALB/GLOB RATIO 1.2 (1.0-2.1); ALT/SGPT 16 U/L (9-52); AST/SGOT 23 U/L (14-36); BLOOD UREA NITROGEN 14 mg/dl (7-17); CALCIUM 9.4 mg/dL (8.4-10.2); GFR NON-AFRICAN AMERICAN > 60; LIPASE 39 U/L (23-300)
[2018-06-07] MEDS ORDERED: Sodium Chloride 0.9% 500 ML IV STA (23:08)
[2018-06-07] MEDS ORDERED: Magnesium Sulfate 2 gm/50 ml 2 GM/50 ML BAG IVPB ONE (23:10)
[2018-06-07] MEDS ORDERED: Potassium CL 10 MEQ/50 ML 50 ML IVPB ONE (23:10)
--- NOTE | 2018-06-07 23:12 | ED PDOC ---
HPI:Nausea, Vomiting, Diarrhea Time Seen by Provider: 06/07/18 19:13 Chief Complaint (Nursing): Weakness/Neurological Deficit Chief Complaint (Provider): weakness History Per: Patient, EMS Onset/Duration Of Symptoms: Days (2) Quality Of Discomfort: denies: "Pain" Associated Symptoms: Chills, Nausea, Diarrhea, Loss Of Appetite. denies: Fever, Vomiting Exacerbating Factors: None Alleviating Factors: None Past Medical History Reviewed: Historical Data, Nursing Documentation, Vital Signs Vital Signs: Last Vital Signs Temp 97.3 F L 06/07/18 18:42 Pulse 56 L 06/07/18 18:42 Resp 16 06/07/18 18:42 BP 119/49 L 06/07/18 18:42 Pulse Ox 99 06/07/18 18:42 - Medical History PMH: Anxiety, Arthritis, CAD, HTN, Hypothyroidism Denies: Asthma, Bronchitis, COPD, HIV, Hypercholesterolemia, Mitral Valve Prolapse, Peripheral Edema, Chronic Kidney Disease - Surgical History Surgical History: Appendectomy, CABG, Cholecystectomy Denies: Pacemaker - Family History Family History: States: CAD - Home Medications Home Medications: Ambulatory Orders Medication Instructions Recorded Aspirin [Ecotrin] 81 mg PO DAILY 10/08/16 Atorvastatin [Lipitor] 80 mg PO DAILY 10/08/16 Clopidogrel [Plavix] 75 mg PO DAILY 10/08/16 Dexlansoprazole [Dexilant] 60 mg PO DAILY 10/08/16 Gabapentin [Neurontin] 300 mg PO TID 10/08/16 Insulin Detemir [Levemir] 15 unit SQ DAILY 10/08/16 Isosorbide Mononitrate [Imdur] 60 mg PO DAILY 10/08/16 Levothyroxine [Synthroid] 50 mcg PO DAILY 10/08/16 amLODIPine [Norvasc] 5 mg PO DAILY 10/08/16 SITagliptin [Januvia] 100 mg PO DAILY 10/12/16 MetFORMIN [glucoPHAGE] 1,000 mg PO BIDWM #30 tab 10/21/16 Carvedilol [Coreg] 25 mg PO BID 07/05/17 Insulin Aspart [Novolog Flexpen] See Protocol SC ACHS 07/05/17 Valsartan 320 mg PO DAILY 07/05/17 Zolpidem [Ambien] 5 mg PO HS 07/05/17 - Allergies Allergies/Adverse Reactions: Allergies Allergy/AdvReac Type Severity Reaction Status Date / Time No Known Allergies Allergy Verified 06/07/18 18:36 Review of Systems ROS Statement: Except As Marked, All Systems Reviewed And Found Negative (and as per hpi) Physical Exam - Reviewed Nursing Documentation Reviewed: Yes Vital Signs Reviewed: Yes - Physical Exam Appears: Positive for: No Acute Distress (but tired appearing) Head Exam: Positive for: ATRAUMATIC, NORMOCEPHALIC Skin: Positive for: Warm, Dry Eye Exam: Positive for: EOMI, PERRL ENT: Positive for: Other (tacky mucus membranes) Neck: Positive for: Painless ROM, Supple Cardiovascular/Chest: Positive for: Bradycardia. Negative for: Murmur Respiratory: Positive for: Normal Breath Sounds. Negative for: Respiratory Distress Gastrointestinal/Abdominal: Positive for: Soft. Negative for: Tenderness, Mass, Distended, Guarding Back: Positive for: Normal Inspection. Negative for: Decreased ROM Extremity: Positive for: Normal ROM. Negative for: Deformity Lymphatic: Negative for: Adenopathy Neurologic/Psych: Positive for: Alert, Oriented, Mood/Affect (flat). Negative for: Motor/Sensory Deficits - Laboratory Results Result Diagrams: 06/07/18 19:24 06/07/18 19:58 - ECG O2 Sat by Pulse Oximetry: 99 Disposition - Clinical Impression Clinical Impression: Generalized muscle weakness, Diarrhea, Dehydration - Disposition Disposition Time: 23:00 Condition: FAIR - Pt Status Changed To: Hospital Disposition Of: Observation - POA Present On Arrival: None
[2018-06-08] MEDS ORDERED: Potassium CL 10 MEQ/50 ML 50 ML ONE (00:38)
[2018-06-08] MEDS ORDERED: Magnesium Sulfate 2 gm/50 ml 2 GM/50 ML BAG ONE (00:38)
[2018-06-08] MEDS: Dextrose 5%/Lactated Ringer's 1,000 ML IV SCH ×3 (03:29→23:00)
[2018-06-08] MEDS ORDERED: Insulin Regular 100 units/ml ONE ×2 (08:10→12:56)
[2018-06-08] MEDS: Insulin Regular 100 units/ml SC SCH ×4 (08:11→22:58)
--- NOTE | 2018-06-08 09:01 | CARD ---
APPROVED REPORT Date of service: 06/07/2018 EKG Measurement Heart [id number] <Conclusion> Normal sinus rhythm Normal ECG
--- NOTE | 2018-06-08 09:58 | CP.PCM.HP ---
History of Present Illness - History of Present Illness History of Present Illness: 77 yo female with PMH of anxiety, arthritis, CAD, HTN, DM, and hypothyroidism present to the ED complaining of diarrhea since yesterday. She reports 5 episodes of watery stools yesterday. No blood or mucus on stools. Patient is poor historian. She also reports mild weakness. States she has similar signs and symptoms when her sugar is low. Otherwise she denies fever, chills, vomiting, abdominal pain or CP, dizziness. No urinary symptoms. No recent travels or sick contacts. PMD Dr. Denise Romero PMH: anxiety, arthritis, CAD, HTN, DM, hypothyroidism Surg Hx: Appendectomy, CABG, Cholecystectomy FHX: CAD Social: denies etoh, tobacco or ilicit drugs. Allergy: NKDA Present on Admission - Present on Admission Any Indicators Present on Admission: No Review of Systems - Review of Systems All systems: reviewed and no additional remarkable complaints except (HPI) Past Patient History - Infectious Disease Hx of Infectious Diseases: None - Tetanus Immunizations Tetanus Immunization: Unknown - Past Medical History & Family History Past Medical History?: Yes - Past Social History Smoking Status: Never Smoked - CARDIAC Hx Hypercholesterolemia: No Hx Hypertension: Yes Hx Mitral Valve Prolapse: No Hx Pacemaker: No Hx Peripheral Edema: No - PULMONARY Hx Asthma: No Hx Bronchitis: No Hx Chronic Obstructive Pulmonary Disease (COPD): No - NEUROLOGICAL Hx Neurological Disorder: No - HEENT Hx HEENT Problems: Yes Hx Blind: Yes (both eyes) - RENAL Hx Chronic Kidney Disease: No - ENDOCRINE/METABOLIC Hx Hypothyroidism: Yes - HEMATOLOGICAL/ONCOLOGICAL Hx Human Immunodeficiency Virus (HIV): No - INTEGUMENTARY Hx Dermatological Problems: No - MUSCULOSKELETAL/RHEUMATOLOGICAL Hx Arthritis: Yes - GASTROINTESTINAL Hx Gastrointestinal Disorders: Yes Hx Gastroesophageal Reflux: Yes - GENITOURINARY/GYNECOLOGICAL Hx Genitourinary Disorders: No - PSYCHIATRIC Hx Anxiety: Yes - SURGICAL HISTORY Hx Appendectomy: Yes Hx Cholecystectomy: Yes Hx Coronary Artery Bypass Graft: Yes - ANESTHESIA Hx Anesthesia: Yes Hx Anesthesia Reactions: No Hx Malignant Hyperthermia: No Meds Allergies/Adverse Reactions: Allergies Allergy/AdvReac Type Severity Reaction Status Date / Time No Known Allergies Allergy Verified 06/07/18 18:36 Physical Exam - Constitutional Appears: No Acute Distress - Head Exam Head Exam: NORMAL INSPECTION - Eye Exam Additional comments: Legally blind. - ENT Exam ENT Exam: Mucous Membranes Dry - Respiratory Exam Respiratory Exam: Clear to Auscultation Bilateral, NORMAL BREATHING PATTERN - Cardiovascular Exam Cardiovascular Exam: REGULAR RHYTHM, +S1, +S2 - GI/Abdominal Exam GI & Abdominal Exam: Normal Bowel Sounds, Soft. absent: Distended, Guarding, Tenderness - Extremities Exam Extremities exam: Negative for: pedal edema - Neurological Exam Neurological exam: Alert, Oriented x3 - Skin Skin Exam: Normal Color Results - Vital Signs Recent Vital Signs: Last Vital Signs Temp 98.2 F 06/08/18 07:22 Pulse 83 06/08/18 07:22 Resp 15 06/08/18 07:22 BP 121/59 L 06/08/18 07:22 Pulse Ox 97 06/08/18 07:22 - Labs Result Diagrams: 06/07/18 19:24 06/08/18 11:15 Labs: Laboratory Results - last 24 hr 06/07/18 06/07/18 06/07/18 19:18 19:24 19:50 WBC 10.4 D RBC 3.79 L Hgb 11.0 L D Hct 33.6 L MCV 88.7 D MCH 28.9 MCHC 32.6 L RDW 14.1 Plt Count 273 MPV 8.4 Neut % (Auto) 74.8 Lymph % (Auto) 16.7 L [place] % (Auto) 7.2 Eos % (Auto) 0.7 Baso % (Auto) 0.6 Neut # (Auto) 7.8 H Lymph # (Auto) 1.7 [place] # (Auto) 0.7 Eos # (Auto) 0.1 Baso # (Auto) 0.1 PT INR APTT Sodium Potassium Chloride Carbon Dioxide Anion Gap BUN Creatinine Est GFR ( Amer) Est GFR (Non-Af Amer) POC Glucose (mg/dL) 162 H Random Glucose Calcium Phosphorus Magnesium Total Bilirubin AST ALT Alkaline Phosphatase Troponin I Total Protein Albumin Globulin Albumin/Globulin Ratio Lipase TSH 3rd Generation Blood Type O POSITIVE Antibody Screen Negative BBK History Checked Patient has bt 06/07/18 06/07/18 06/08/18 19:58 19:58 07:08 WBC RBC Hgb Hct MCV MCH MCHC RDW Plt Count MPV Neut % (Auto) Lymph % (Auto) [place] % (Auto) Eos % (Auto) Baso % (Auto) Neut # (Auto) Lymph # (Auto) [place] # (Auto) Eos # (Auto) Baso # (Auto) PT 11.2 INR 1.0 APTT 27.3 Sodium 129 L Potassium 3.4 L Chloride 94 L Carbon Dioxide 22 Anion Gap 16 BUN 14 Creatinine 0.6 L Est GFR ( Amer) > 60 Est GFR (Non-Af Amer) > 60 POC Glucose (mg/dL) 257 H Random Glucose 150 H Calcium 9.4 Phosphorus 3.7 Magnesium 1.1 L Total Bilirubin 0.3 AST 23 ALT 16 Alkaline Phosphatase 70 Troponin I < 0.0120 Total Protein 7.4 Albumin 4.0 Globulin 3.4 Albumin/Globulin Ratio 1.2 Lipase 39 TSH 3rd Generation 4.64 Blood Type Antibody Screen BBK History Checked Assessment & Plan - Assessment and Plan (Free Text) Assessment: 77 yo female with PMH of anxiety, arthritis, CAD, HTN, DM, and hypothyroidism admitted due to acute diarrhea and dehydration. Hypokalemia Plan: - VSS, afebrile - labs reviewed - CXR negative for active disease - EKG normal sinus rhythm - IV fluids - resume home meds - repeat labs in am - rest os plan as ordered. Case discussed with Dr Merrill.
[2018-06-08] MEDS: Pantoprazole 40 mg EC Tab PO SCH (10:03)
--- NOTE | 2018-06-08 10:18 | RAD ---
Date of service: 06/07/2018 HISTORY: weakness COMPARISON: 07/05/2017. FINDINGS: LUNGS: The lungs are well inflated. There is moderate pulmonary venous congestion. PLEURA: No pleural effusions or pneumothorax. CARDIOVASCULAR: The heart is normal in size. Atherosclerotic aortic arch calcifications are present. Status post CABG. OSSEOUS STRUCTURES: Within normal limits for the patient's age. VISUALIZED UPPER ABDOMEN: Normal. OTHER FINDINGS: None. IMPRESSION: No active pulmonary disease. Moderate pulmonary venous congestion.
[2018-06-08 11:35] LABS: BLOOD UREA NITROGEN 6 mg/dl (7-17); CALCIUM 8.8 mg/dL (8.4-10.2); GFR NON-AFRICAN AMERICAN > 60
[2018-06-08] MEDS ORDERED: Alum-Mag Hydrox-Simethicone Susp (30 mL) PO PRN (12:27)
[2018-06-08] MEDS ORDERED: Alum-Mag Hydrox-Simethicone Susp (30 mL) ONE (12:41)
[2018-06-08] MEDS ORDERED: Dextrose 50% SYRINGE Inj (50 ml) IV PRN (13:49)
[2018-06-08] MEDS ORDERED: Glucagon Recombinant 1 mg Inj IM PRN (13:49)
[2018-06-08] MEDS ORDERED: Patient's Own Med (Atorvastatin [Lipitor] 80 MG) PO SCH (22:00)
[2018-06-09] MEDS: Dextrose 5%/Lactated Ringer's 1,000 ML IV SCH (02:48)
[2018-06-09] MEDS ORDERED: Levothyroxine 50 MCG TAB PO SCH (06:30)
[2018-06-09 08:41] VITALS: RESP 20; TEMP 98.4; O2SAT 97
[2018-06-09] MEDS: Insulin Regular 100 units/ml SC SCH ×3 (08:45→16:40)
[2018-06-09] MEDS ORDERED: Enoxaparin 40 mg Syringe SC SCH (09:00)
[2018-06-09] MEDS ORDERED: Pantoprazole 40 mg EC Tab PO SCH (09:00)
[2018-06-09 09:33] LABS: BASO % 0.6 % (0.0-2.0); EOS # 0.1 K/uL (0.0-0.7); EOS % 0.7 % (0.0-4.0); HEMOGLOBIN 11.5 g/dL (12.0-16.0); LYMPH # 1.4 K/uL (1.0-4.3); LYMPH % 19.2 % (20.0-40.0); MEAN CELL VOLUME 87.3 fl (81.0-99.0); MEAN CORPUSCULAR HEMOGLOBIN 29.6 pg (27.0-31.0); MEAN CORPUSCULAR HGB CONC 33.9 g/dL (33.0-37.0); MEAN PLATELET VOLUME 8.6 fl (7.2-11.7); MONO # 0.5 K/uL (0.0-0.8); MONO % 6.8 % (0.0-10.0); NEUT # 5.1 K/uL (1.8-7.0); NEUT % 72.7 % (50.0-75.0); RBC 3.9 Mil/uL (3.80-5.20); RED CELL DISTRIBUTION WIDTH 14.3 % (11.5-14.5); WHITE BLOOD COUNT 7.1 K/uL (4.8-10.8)
[2018-06-09 09:39] LABS: ALB/GLOB RATIO 1.2 (1.0-2.1); ALT/SGPT 19 U/L (9-52); AST/SGOT 31 U/L (14-36); BLOOD UREA NITROGEN 12 mg/dl (7-17); CALCIUM 9.1 mg/dL (8.4-10.2); GFR NON-AFRICAN AMERICAN > 60
[2018-06-09] MEDS: Pantoprazole 40 mg EC Tab PO SCH (10:32)
[2018-06-09 13:40] VITALS: BMI 23.4
--- NOTE | 2018-06-09 15:18 | CP.PCM.PCO ---
Assessment/Plan - Assessment/Plan Assessment (Free Text): Pt stable, seen and cleared for d/c home by Dr. Merrill on same home meds. Spoke to pt's son, Elmo Banks, made him aware that pt is being discharged today. Pt's son says he will be here later this evening to pick pt up, also made him aware to give pt all her diabetic meds to control her blood sugars, he verbalizes understanding. Pt to f/u with PMD or Dr. Merrill on Thursday to monitor and if needed adjust diabetic medications. Pt's current BS level 110. Patient aware son is coming in later. RN aware of plan
[2018-06-09 16:09] VITALS: BP 152/78; PULSE 99
== END 2018-06-09 19:50 | disposition home or self-care (01) ==
LOC: H.ER 18:35 → H.ERHOLD 23:11 → H.MEDSURG1 06-08 19:05
PROVIDERS: ADMIT Family Medicine; ATTEND Family Medicine
DX: R19.7 Diarrhea, unspecified (principal); E03.9 Hypothyroidism, unspecified; E11.9 Type 2 diabetes mellitus without complications; E86.0 Dehydration; E87.6 Hypokalemia; I10 Essential (primary) hypertension; I25.10 Atherosclerotic heart disease of native coronary artery without angina pectoris; Z95.1 Presence of aortocoronary bypass graft; K21.9 Gastro-esophageal reflux disease without esophagitis; Z79.02 Long term (current) use of antithrombotics/antiplatelets; Z79.4 Long term (current) use of insulin; Z79.82 Long term (current) use of aspirin; F41.9 Anxiety disorder, unspecified; M19.90 Unspecified osteoarthritis, unspecified site; H54.8 Legal blindness, as defined in USA; R53.1 Weakness
CPT/HCPCS: 36415; 71045; 80048; 80053; 82948; 83690; 83735; 84100; 84443; 84484; 85025; 85610; 85730; 86850; 86900; 87040; 93005; 96360; 96365; 96366; 96372; 97161; 99285; G0378; G8978; G8979; G8980; J1650; J3480; J7040; J7120